=== PATIENT | male | born 1940 | race Caucasian/White ===

== ENCOUNTER 2023-09-17 11:19 | Inpatient (IN) ==
--- NOTE | 2023-09-17 11:55 | ED Triage Note ---
Date of Service September 17, 2023 History of Present Illness This patient was briefly evaluated while in triage. An abbreviated physical exam was performed. This patient is a 82-year-old Male who presents to the ED for evaluation of From SCI Jaciel catheter placed for urinary retention yesterday now with abdominal pain and hematuria Physical Exam GENERAL: NAD CARDIOVASCULAR: RRR RESPIRATORY: CTA ABDOMEN: BS x 4. Nontender to palpation. Prakash in place draining blood-tinged urine. Initial orders for labs and / or imaging were placed and patient was placed in the waiting area until a bed is available. Please see further documentation for the full ED course.
[2023-09-17 14:09] LABS: Basophils # (auto) 0.01 K/uL (0.00-0.20); Basophils % (auto) 0.1 %; Eosinophils # (auto) 0.21 K/uL (0.00-0.50); Hematocrit (blood only) 32.1 % (42.0-52.0); Hemoglobin 10.3 g/dl (14.0-18.0); Immature Granulocytes # (auto) 0.04 K/uL (0.01-0.20); Immature Granulocytes % (auto) 0.6 %; Lymphocytes # (auto) 1.04 K/uL (1.20-3.40); Lymphocytes % (auto) 14.8 %; Mean Corpuscular Hemoglobin 29.7 pg (25.0-34.0); Mean Corpuscular Hgb Conc 32.1 g/dL (32.0-36.0); Mean Corpuscular Volume 92.5 fL (80.0-100.0); Mean Platelet Volume 11.8 fL (9.4-12.4); Monocytes % (auto) 7.1 %; Neutrophils # (auto) 5.22 K/uL (1.40-6.50); Neutrophils % (auto) 74.4 %; Ovalocytes 1+; Platelet Count 164 K/uL (130-400); RDW Coefficient of Variation 14.5 % (11.5-14.5); RDW Standard Deviation 48.3 fL (36.4-46.3); Red Blood Count 3.47 M/uL (4.70-6.10); White Blood Count 7.02 K/ul (4.8-10.8)
[2023-09-17 14:14] LABS: Prothrombin Time 11.4 Seconds (9.0-12.0)
[2023-09-17 14:36] LABS: Calcium 8.6 mg/dl (8.6-10.3); Carbon Dioxide 28 mmol/L (21-32); Chloride 102 mmol/L (98-107); Potassium 3.6 mmol/L (3.5-5.1); Sodium 139 mmol/L (136-145)
[2023-09-17 14:37] LABS: Albumin Level 3.1 gm/dl (3.4-5.0); Anion Gap 9 (3-11); Bilirubin,Total 0.5 mg/dl (0.2-1.0)
[2023-09-17 14:42] LABS: Albumin Globulin Ratio 0.8 (0.9-2); BUN Creatinine Ratio 15.8 (10-20); Blood Urea Nitrogen 16 mg/dl (6-23); Est GFR (Non-African American) 69.9 ml/min; Globulin 3.9 gm/dl (2.5-4.0); Glucose 99 mg/dl (70-99(Fasting)); Lipase 10 U/L (11-82)
[2023-09-17 14:51] LABS: Alanine Aminotransferase 7 U/L (7-52); Alkaline Phosphatase 75 U/L (34-104); Aspartate Aminotransferase 13 U/L (13-39)
[2023-09-17] MEDS ORDERED: OPTIRAY 320 100ml IV ONE (16:32)
--- NOTE | 2023-09-17 16:51 | CT Scan Report ---
CT OF THE ABDOMEN AND PELVIS WITH CONTRAST CLINICAL HISTORY: Abdominal pain. Urinary retention. COMPARISON STUDY: None. TECHNIQUE: Following IV administration of 89 mL of Optiray, axial images of the abdomen and pelvis we re obtained from the lung bases to the proximal femurs. Images were reviewed in the axial, sagittal, and coronal planes. IV contrast was administered without complication. Automated exposure control wa s utilized for the study. A dose lowering technique was utilized adhering to the principles of ALARA . CT DOSE: 1087.95 mGy.cm FINDINGS: No pneumatosis, free air or portal venous gas is present. There is a moderate sized hiatal hernia. Liver morphology is normal. An 8 mm hypodense segment 7 hepatic lesion is too small to charac terize. There is no biliary or pancreatic ductal dilatation. The gallbladder is slightly distended. T here is no pericholecystic infiltration or gallbladder wall thickening. Spleen and adrenal glands are unremarkable. There is moderate bilateral hydroureteronephrosis. A Prakash balloon within the base of the bladder is noted. There is gas within the bladder. Moderate bladder wall thickening is noted with adjacent fluid and stranding. There is a 4.4 cm density within the bladder on axial image 236 of 329 . No abdominal or pelvic lymphadenopathy is present. There are no suspicious osseous lesions. Right h ip arthroplasty is intact. There is no evidence for a bowel obstruction. A moderate amount of stool w ithin the rectum is present. The caliber and wall thickness of small and large bowel are normal. The appendix is normal. Postoperative within the spine are incidentally noted. IMPRESSION: 1. Moderate bilateral hydroureteronephrosis, related to the bladder. Moderate bladder wall thickening with adjacent fluid and stranding. Prakash balloon and gas within the bladder. In addition, 4.4 cm den sity within the bladder. This could reflect clot or a bladder tumor. 2. Moderate amount of stool within the rectum. No evidence for a bowel obstruction. No bowel wall thi ckening. 3. Hiatal hernia. ACT 112: Negative or not required by law. Electronically signed by: Glen Meyers M.D. 09/17/2023 4:50 PM
--- NOTE | 2023-09-17 18:17 | Emergency Department Note ---
Impression & Plan Gross hematuria, Urinary retention, Hydronephrosis ED Provider Note NAME: FELICIANO [id number] JUSTYNA AGE: 82 SEX: M ARRIVES VIA: Walk-In INFORMANT: Patient ED PROVIDER(S): Wicho Landa MD CHIEF COMPLAINT: Blood in cuello catheter. Referred. PLAN: Disposition: Admit MEDICAL DECISION MAKING: The patient is a pleasant 82-year-old gentleman, current skilled nursing inmate at [facility] who presents to the emergency department via walk-in referred from his [facility] for evaluation of ongoing gross hematuria draining into Cuello catheter which was placed yesterday due to urinary retention in the setting of the patient describing lower urinary tract symptoms for years but over the past week or so has been only dribbling and having lower abdominal discomfort. He reports his dribbling urine was yellow and nonbloody but after the catheter was placed has only been feeling with blood. He denies any headache or lightheadedness. Denies any fevers, chills, cough, congestion, nausea, vomiting. His CT imaging today does show constipation as well as it did on a recent emergency department visit on his CT spine imaging after a fall. However he reports he goes approximately every 1-3 days and this has been his normal for years and does not have to strain significantly. The patient denies being on any blood thinners. On my evaluation the patient is in no acute distress, afebrile stable vital signs. His abdomen is benign. WBC and platelets within normal limits. H/H 10.3/32.1 without recent values for comparison. INR is normal. Chemistry without metabolic acidosis. Electrolytes and LFTs unremarkable. Lipase not elevated. CT of the abdomen pelvis was performed and demonstrates mild bilateral hydroureteronephrosis in the setting of the patient's bladder outlet obstruction prior to Cuello catheter placement. Note is made of a 4 cm density within the bladder which may reflect clot versus bladder tumor. Given these findings in the setting of possible challenges with close outpatient follow-up in the setting of his incarceration Case was reviewed with urology on-call, Dr. Garsia. Appreciate consultation recommendations and agrees with plan for admission to hospital service for monitoring and they will likely scope tomorrow. If the patient were to develop obstruction of his catheter then CBI could be initiated with three-way catheter but can hold on this for now. Recommends keeping the patient n.p.o. if the patient were to patient's daughter clot off and require evacuation emergently. Case was discussed with Dr. Shah, [facility] hospitalist, who will evaluate the patient for admission. UA subsequently without convincing evidence of infection. Triage Nursing notes reviewed and agree them. Prior/outside-external medical records reviewed Vital Signs: reviewed Differential diagnosis: Renal colic, UTI, appendicitis, diverticulitis, mesenteric ischemia, aortic pathology, infections, inflammatory bowel disease, PUD, biliary pathology, as well as other pathologies. ER treatment provided: See below. Diagnostics interpreted by me: Cardiac Monitoring: An order for continuous cardiac monitoring was placed and demonstrated normal sinus rhythm, 65 bpm, no ectopy. Laboratory studies: See below Imaging studies: See below Consultation(s): Dr. Garsia, [place] [facility]rology. [facility] HPI: The patient is a pleasant 82-year-old gentleman, current skilled nursing inmate at [facility] who presents to the emergency department via walk-in referred from [facility] for evaluation of ongoing gross hematuria draining into Cuello catheter which was placed yesterday due to urinary retention in the setting of the patient describing lower urinary tract symptoms for years but over the past week or so has been only dribbling and having lower abdominal discomfort. He reports his dribbling urine was yellow and nonbloody but after the catheter was placed has only been feeling with blood. He denies any headache or lightheadedness. Denies any fevers, chills, cough, congestion, nausea, vomiting. His CT imaging today does show constipation as well as it did on a recent emergency department visit on his CT spine imaging after a fall. However he reports he goes approximately every 1-3 days and this has been his normal for years and does not have to strain significantly. ROS: See above HPI for pertinent positives & negatives. A total of 10 systems reviewed and were otherwise negative. VITALS:See Below PHYSICAL EXAMINATION: GENERAL: Awake, alert, well-appearing, in no distress HENT: Normocephalic, atraumatic. Oropharynx unremarkable. EYES: Normal conjunctiva. Sclera non-icteric. NECK: Supple. No nuchal rigidity. FROM. No JVD. RESPIRATORY: Clear to auscultation. CARDIAC: Regular rate, normal rhythm. Extremities warm and well perfused. Pulses equal. ABDOMEN: Soft, non-distended. No tenderness to palpation. No rebound or guarding. No masses. : Cuello catheter in place draining gross powers red blood. MUSCULOSKELETAL: Chest examination reveals no tenderness. The back is symmetrical on inspection without obvious abnormality. There is no CVA tenderness to palpation. No joint edema. LOWER EXTREMITIES: Calves are equal size bilaterally and non-tender. No edema. No discoloration. NEURO: Normal sensorium. No sensory or motor deficits noted. SKIN: No rash or jaundice noted. Wicho Landa MD Past Med/Surg History Medical History Hypertension Social History Smoking Status: Former smoker Tobacco Type: Cigarettes Hx Alcohol Use: No Hx Substance Use: No Preferred Language: Slovenian Communication Ability: Effective Supervisor Cereal Required: No Beliefs That Will Affect Care: None Current Living Situation: Other Current Living Situation Comment: [facility] Feels Safe at Home: Yes Assistive Devices: None Allergies Allergies Allergy/AdvReac Type Severity Reaction Status Date / Time No Known Allergies Allergy Unverified 09/17/23 19:47 Home Meds Home Medications Medication Instructions Recorded Confirmed albuterol sulfate 90 mcg/actuation 2 puff inhalation QID PRN 09/17/23 09/17/23 aerosol inhaler Shortness Of Breath cholecalciferol (vitamin D3) 25 50 mcg PO DAILY 09/17/23 09/17/23 mcg (1,000 unit) capsule (Vitamin D3) furosemide 40 mg tablet (Lasix) 40 mg PO DAILY 09/17/23 09/17/23 lisinopril 20 mg tablet 20 mg PO DAILY 09/17/23 09/17/23 ropinirole 1 mg tablet 1 mg PO HS 09/17/23 09/17/23 tamsulosin 0.4 mg capsule 0.4 mg PO HS 09/17/23 09/17/23 vit B complex and vit C 1 tab PO DAILY 09/17/23 09/17/23 no.24-ferrous fum 66 mg-folic 1,000 mcg tablet (Nephron FA) Results & Data (ED) Vital Signs Vital Signs - 24 hr 09/17/23 11:51 09/17/23 17:58 09/17/23 18:42 Temperature 36.6 C Temperature Source Skin Pulse Rate 65 Pulse Rate [Finger] 65 63 Respiratory Rate 18 18 18 Blood Pressure 152/75 H Blood Pressure [Right Arm] 156/79 H 153/84 H Blood Pressure Mean 100 Blood Pressure Mean [Right Arm] 104 107 Pulse Oximetry 97 96 97 Oxygen Delivery Method Room Air Room Air Sepsis Recent Fever Within 48 Hours No Sepsis New/Unexplained Change in Mental Status No Sepsis Action Taken by Nursing No Action Required Laboratory Data Attestation: I reviewed the patient's lab results. 09/17/23 13:20 09/17/23 13:20 Lab Results 09/17/23 09/17/23 09/17/23 Range/Units 13:20 13:20 13:20 WBC 7.02 (4.8-10.8) K/ul RBC 3.47 L (4.70-6.10) M/uL Hgb 10.3 L (14.0-18.0) g/dl Hct 32.1 L (42.0-52.0) % MCV 92.5 (80.0-100.0) fL MCH 29.7 (25.0-34.0) pg MCHC 32.1 (32.0-36.0) g/dL RDW Std Deviation 48.3 H (36.4-46.3) fL RDW Coeff of Ingrid 14.5 (11.5-14.5) % Plt Count 164 (130-400) K/uL MPV 11.8 (9.4-12.4) fL Immature Gran % (Auto) 0.6 % Neut % (Auto) 74.4 % Lymph % (Auto) 14.8 % Eaton % (Auto) 7.1 % Eos % (Auto) 3.0 % Baso % (Auto) 0.1 % Neut # (Auto) 5.22 (1.40-6.50) K/uL Lymph # (Auto) 1.04 L (1.20-3.40) K/uL Eaton # (Auto) 0.50 (0.11-0.59) K/uL Eos # (Auto) 0.21 (0.00-0.50) K/uL Baso # (Auto) 0.01 (0.00-0.20) K/uL Immature Gran # (Auto) 0.04 (0.01-0.20) K/uL Ovalocytes 1+ PT 11.4 (9.0-12.0) Seconds INR 1.0 (0.9-1.1) Sodium 139 (136-145) mmol/L Potassium 3.6 (3.5-5.1) mmol/L Chloride 102 (98-107) mmol/L Carbon Dioxide 28 (21-32) mmol/L Anion Gap 9 (3-11) BUN 16 (6-23) mg/dl Creatinine 1.01 (0.6-1.4) mg/dl Est Cr Clr Drug Dosing Not Reportable Est GFR ( Amer) 81.0 ml/min Est GFR (Non-Af Amer) 69.9 ml/min BUN/Creatinine Ratio 15.8 (10-20) Glucose 99 (70-99(Fasting)) mg/dl Calcium 8.6 (8.6-10.3) mg/dl Total Bilirubin 0.5 (0.2-1.0) mg/dl AST 13 (13-39) U/L ALT 7 (7-52) U/L Alkaline Phosphatase 75 (34-104) U/L Total Protein 7.0 (6.0-8.3) gm/dl Albumin 3.1 L (3.4-5.0) gm/dl Globulin 3.9 (2.5-4.0) gm/dl Albumin/Globulin Ratio 0.8 L (0.9-2) Lipase 10 L (11-82) U/L Urine Color Urine Appearance (Clear) Urine pH (4.5-7.5) Ur Specific Foster (1.000-1.030) Urine Protein (Negative) Urine Glucose (UA) (Negative) Urine Ketones (Negative) Urine Blood (Negative) Urine Nitrite (Negative) Urine Bilirubin (Negative) Urine Urobilinogen (Negative) Ur Leukocyte Esterase (Negative) Urine RBC (0-4) /hpf Urine WBC (0-5) /hpf Ur Epithelial Cells (0-5) /lpf Urine Bacteria (Negative) SARS-CoV-2, RNA, NAAT (NEGATIVE) 09/17/23 09/17/23 Range/Units 18:40 19:26 WBC (4.8-10.8) K/ul RBC (4.70-6.10) M/uL Hgb (14.0-18.0) g/dl Hct (42.0-52.0) % MCV (80.0-100.0) fL MCH (25.0-34.0) pg MCHC (32.0-36.0) g/dL RDW Std Deviation (36.4-46.3) fL RDW Coeff of Ingrid (11.5-14.5) % Plt Count (130-400) K/uL MPV (9.4-12.4) fL Immature Gran % (Auto) % Neut % (Auto) % Lymph % (Auto) % Eaton % (Auto) % Eos % (Auto) % Baso % (Auto) % Neut # (Auto) (1.40-6.50) K/uL Lymph # (Auto) (1.20-3.40) K/uL Eaton # (Auto) (0.11-0.59) K/uL Eos # (Auto) (0.00-0.50) K/uL Baso # (Auto) (0.00-0.20) K/uL Immature Gran # (Auto) (0.01-0.20) K/uL Ovalocytes PT (9.0-12.0) Seconds INR (0.9-1.1) Sodium (136-145) mmol/L Potassium (3.5-5.1) mmol/L Chloride (98-107) mmol/L Carbon Dioxide (21-32) mmol/L Anion Gap (3-11) BUN (6-23) mg/dl Creatinine (0.6-1.4) mg/dl Est Cr Clr Drug Dosing Est GFR ( Amer) ml/min Est GFR (Non-Af Amer) ml/min BUN/Creatinine Ratio (10-20) Glucose (70-99(Fasting)) mg/dl Calcium (8.6-10.3) mg/dl Total Bilirubin (0.2-1.0) mg/dl AST (13-39) U/L ALT (7-52) U/L Alkaline Phosphatase (34-104) U/L Total Protein (6.0-8.3) gm/dl Albumin (3.4-5.0) gm/dl Globulin (2.5-4.0) gm/dl Albumin/Globulin Ratio (0.9-2) Lipase (11-82) U/L Urine Color Red Urine Appearance Cloudy A (Clear) Urine pH 7.5 (4.5-7.5) Ur Specific Foster 1.020 (1.000-1.030) Urine Protein 3+ H (Negative) Urine Glucose (UA) Trace H (Negative) Urine Ketones Trace H (Negative) Urine Blood 3+ H (Negative) Urine Nitrite Negative (Negative) Urine Bilirubin Negative (Negative) Urine Urobilinogen Negative (Negative) Ur Leukocyte Esterase Negative (Negative) Urine RBC >30 H (0-4) /hpf Urine WBC 0-5 (0-5) /hpf Ur Epithelial Cells 0-5 (0-5) /lpf Urine Bacteria Negative (Negative) SARS-CoV-2, RNA, NAAT NEGATIVE (NEGATIVE) Administered Medications Acetaminophen (Acetaminophen 325 Mg Tab) 650 mg PO Q4H PRN PRN Reason: Pain or Fever Stop: 10/17/23 23:11 Last Admin: 09/18/23 18:07 Dose: 650 mg Documented By: Admin: 09/17/23 23:53 Dose: 650 mg Documented By: LITZY Furosemide (Furosemide 40 Mg Tab) 40 mg PO DAILY KAYLIN Stop: 10/18/23 08:59 Last Admin: 09/18/23 10:48 Dose: 40 mg Documented By: ARABELLA Sodium Chloride (Nss) 1,000 mls @ 100 mls/hr IV .Q10H KAYLIN Stop: 10/17/23 23:11 Last Admin: 09/18/23 21:48 Dose: 100 mls/hr Documented By: Infusion: 09/18/23 20:55 Dose: 0 mls/hr Documented By: Admin: 09/18/23 10:53 Dose: 100 mls/hr Documented By: Infusion: 09/18/23 10:52 Dose: 0 mls/hr Documented By: Infusion: 09/18/23 10:49 Dose: 0 mls/hr Documented By: Infusion: 09/18/23 01:45 Dose: 0 mls/hr Documented By: Admin: 09/17/23 23:58 Dose: 100 mls/hr Documented By: LITZY Ceftriaxone Sodium 1,000 mg/ (Dextrose) 50 mls @ 100 mls/hr IV Q24H KAYLIN; Protocol Stop: 09/28/23 20:59 Last Infusion: 09/18/23 22:55 Dose: 0 mls/hr Documented By: Admin: 09/18/23 21:48 Dose: 100 mls/hr Documented By: JENNY Lisinopril (Lisinopril 20 Mg Tab) 20 mg PO DAILY KAYLIN Stop: 10/18/23 08:59 Last Admin: 09/18/23 10:48 Dose: 20 mg Documented By: ARABELLA Magnesium Oxide (Magnesium Oxide 400 Mg Tab) 400 mg PO BID KAYLIN Stop: 10/18/23 20:59 Last Admin: 09/18/23 21:49 Dose: 400 mg Documented By: JENNY Melatonin (Melatonin 3 Mg Tab) 3 mg PO HS PRN PRN Reason: Sleep Stop: 10/18/23 19:56 Last Admin: 09/18/23 21:50 Dose: 3 mg Documented By: JENNY Ropinirole HCl (Ropinirole Hcl 1 Mg Tablet) 1 mg PO HS KAYLIN Stop: 10/17/23 23:11 Last Admin: 09/18/23 21:49 Dose: 1 mg Documented By: Admin: 09/18/23 00:24 Dose: 1 mg Documented By: LITZY Tamsulosin HCl (Tamsulosin Hcl 0.4 Mg Cap) 0.4 mg PO HS KAYLIN Stop: 10/17/23 23:11 Last Admin: 09/18/23 21:50 Dose: 0.4 mg Documented By: Admin: 09/18/23 00:24 Dose: 0.4 mg Documented By: LITZY Vitamin B Complex/Folic Acid (Nephrocaps) 1 cap PO DAILY KAYLIN Stop: 10/18/23 08:59 Last Admin: 09/18/23 10:49 Dose: 1 cap Documented By: ARABELLA Vitamin D (Cholecalciferol 1,000 Units 25 Mcg Tab) 2,000 units PO DAILY KAYLIN Stop: 10/18/23 08:59 Last Admin: 09/18/23 10:48 Dose: 2,000 units Documented By: ARABELLA Discontinued Medications Ioversol (Optiray 320 100ml) 89 ml IV ONCE ONE Stop: 09/17/23 16:33 Last Admin: 09/17/23 16:33 Dose: 89 ml Documented By: EMERSON Potassium Chloride (Potassium Chloride Crtab 20 Meq Tabcr) 40 meq PO NOW STA Stop: 09/18/23 18:10 Last Admin: 09/18/23 21:49 Dose: 40 meq Documented By: JENNY Zolpidem Tartrate (Zolpidem Tartrate 5 Mg Tab) 5 mg PO NOW STA Stop: 09/17/23 23:43 Last Admin: 09/18/23 00:24 Dose: 5 mg Documented By: LITZY Imaging Data Radiologist's Impression: Abdomen/Pelvis CT 09/17/23 11:56 CT OF THE ABDOMEN AND PELVIS WITH CONTRAST CLINICAL HISTORY: Abdominal pain. Urinary retention. COMPARISON STUDY: None. TECHNIQUE: Following IV administration of 89 mL of Optiray, axial images of the abdomen and pelvis were obtained from the lung bases to the proximal femurs. Images were reviewed in the axial, sagittal, and coronal planes. IV contrast was administered without complication. Automated exposure control was utilized for the study. A dose lowering technique was utilized adhering to the principles of ALARA. CT DOSE: 1087.95 mGy.cm FINDINGS: No pneumatosis, free air or portal venous gas is present. There is a moderate sized hiatal hernia. Liver morphology is normal. An 8 mm hypodense segment 7 hepatic lesion is too small to characterize. There is no biliary or pancreatic ductal dilatation. The gallbladder is slightly distended. There is no pericholecystic infiltration or gallbladder wall thickening. Spleen and adrenal glands are unremarkable. There is moderate bilateral hydroureteronephrosis. A Cuello balloon within the base of the bladder is noted. There is gas within the b ladder. Moderate bladder wall thickening is noted with adjacent fluid and stranding. There is a 4.4 cm density within the bladder on axial image 236 of 329. No abdominal or pelvic lymphadenopathy is present. There are no suspicious osseous lesions. Right hip arthroplasty is intact. There is no evidence for a bowel obstruction. A moderate amount of stool within the rectum is present. The caliber and wall thickness of small and large bowel are normal. The appendix is normal. Postoperative within the spine are incidentally noted. IMPRESSION: 1. Moderate bilateral hydroureteronephrosis, related to the bladder. Moderate bladder wall thickening with adjacent fluid and stranding. Cuello balloon and gas within the bladder. In addition, 4.4 cm density within the bladder. This could reflect clot or a bladder tumor. 2. Moderate amount of stool within the rectum. No evidence for a bowel obstruction. No bowel wall thickening. 3. Hiatal hernia. ACT 112: Negative or not required by law. Electronically signed by: Glen Meyers M.D. 09/17/2023 4:50 PM Discharge Plan Visit Data Chief Complaint: Urinary Symptoms Stated Complaint: UNABLE TO URINATE,HEMATURIA ED Provider: Wicho Landa Discharge Problem: Gross hematuria, Urinary retention, Hydronephrosis Patient Disposition: Admitted As Inpatient Discharge Instructions Interventions: ED Discharge Assessment Last Done: 09/17/23 22:20
[2023-09-17 19:33] LABS: Appearance Urine Cloudy (Clear); Bilirubin Urine Negative (Negative); Blood Urine 3+ (Negative); Color Urine Red; Glucose Urine UA Trace (Negative); Ketones Urine Trace (Negative); Leukocyte Esterase Urine Negative (Negative); Nitrite Urine Negative (Negative); Protein Urine 3+ (Negative); Urobilinogen Urine Negative (Negative); pH Urine 7.5 (4.5-7.5)
[2023-09-17 19:36] LABS: Epithelial Cell Urine 0-5 /lpf (0-5)
[2023-09-17 19:37] LABS: Bacteria Urine Negative (Negative); RBC Urine >30 /hpf (0-4); WBC Urine 0-5 /hpf (0-5)
--- NOTE | 2023-09-17 20:22 | History & Physical Report ---
Date of Service September 17, 2023 Assessment & Plan (1) Gross hematuria: Plan: 82-year-old male past med hx significant for restless leg syndrome, constipation, GERD, iron deficiency anemia, hypertension, COPD, neuropathy, urinary retention, history of dyspnea, vitamin D deficiency, coming from long-term because of gross hematuria. Gross hematuria History of urinary retention S/p Prakash yesterday which resulted in gross hematuria Moderate bilateral hydronephrosis on CAT scan Questionable clot versus bladder tumor Urology notified by ER We will monitor H&H, n.p.o. IV fluids, continue Flomax Urology consult Close monitor Acute on chronic iron deficiency anemia Questionable acute blood loss anemia Hemoglobin 10.3. Do not know baseline Blood consent obtained We will follow H&H Constipation. Stool softeners . Hypertension Continue lisinopril and Lasix Right lower extremity edema We will follow Doppler Restless leg syndrome On ropinirole History of COPD continue home inhalers Currently stable DVT prophylaxis We will place on SCDs if Dopplers negative for DVT Disposition med/telemetry Full code History of Present Illness Chief Complaint: Gross hematuria Primary Care Provider: LOIS Grissom 82-year-old male past med history significant for restless leg syndrome, constipation, GERD, iron deficiency anemia, hypertension, COPD, neuropathy, urinary retention, history of dyspnea, vitamin D deficiency, coming from long-term because of gross hematuria. Patient states he has urinary retention for long time. Yesterday Prakash was placed after that developed hematuria which did not resolve so he was brought to the ER. Has chronic back pain and hip pain. Denies any nausea or vomiting. No headache. No cough. No chest pain or shortness of breath. Appetite is okay. Ambulates with walker. Currently resting comfortably and hemodynamically stable. Past medical history as mentioned above Past surgical history. States had 4 back surgeries. Had a neck surgery. States had right hip replacement. Social history. Currently present. States last time he smoked was 40 years ago. States last time he drank alcohol was 40 years ago. Family history. States mother from cancer. Father from black lung Allergies Allergy/AdvReac Type Severity Reaction Status Date / Time No Known Allergies Allergy Unverified 09/17/23 19:47 Home Medications Medication Instructions Recorded Confirmed Type albuterol sulfate 90 mcg/actuation 2 puff inhalation QID PRN 09/17/23 09/17/23 History aerosol inhaler Shortness Of Breath cholecalciferol (vitamin D3) 25 50 mcg PO DAILY 09/17/23 09/17/23 History mcg (1,000 unit) capsule (Vitamin D3) furosemide 40 mg tablet (Lasix) 40 mg PO DAILY 09/17/23 09/17/23 History lisinopril 20 mg tablet 20 mg PO DAILY 09/17/23 09/17/23 History ropinirole 1 mg tablet 1 mg PO HS 09/17/23 09/17/23 History tamsulosin 0.4 mg capsule 0.4 mg PO HS 09/17/23 09/17/23 History vit B complex and vit C 1 tab PO DAILY 09/17/23 09/17/23 History no.24-ferrous fum 66 mg-folic 1,000 mcg tablet (Nephron FA) Past Med/Surg History Medical History Hypertension Social History Smoking Status: Former smoker Tobacco Type: Cigarettes Hx Alcohol Use: No Hx Substance Use: No Preferred Language: Panamanian Communication Ability: Effective Oncology Social Worker Required: No Beliefs That Will Affect Care: None Current Living Situation: Other Current Living Situation Comment: LOIS Grissom Feels Safe at Home: Yes Assistive Devices: Walker Review of Systems Review of Systems: All systems reviewed & are unremarkable except as noted in HPI & below Physical Exam Physical Exam: General- Not in distress Head- atraumatic Eyes- PERRL. ENT- oropharynx clear Neck- supple, no JVD. Lungs- clear to auscultation. wheezing or crackles. Heart- regular rhythm; no murmur, no gallop. Abdomen- normal bowel sounds, soft, nontender, no distension. Extremities- right lower extremity edema present. no erythema seen. Neuro- alert, oriented x 3; PERRL, no facial palsy; no dysarthria; Skin- warm & dry Results & Data Results & Data Vital Signs (Past 12 Hours) Vital Signs Temp Pulse Pulse Resp BP BP Pulse Ox 09/17/23 19:00 63 18 160/78 H 95 09/17/23 18:42 63 18 153/84 H 97 09/17/23 17:58 65 18 156/79 H 96 09/17/23 11:51 36.6 C 65 18 152/75 H 97 O2 Del Method 09/17/23 19:00 Room Air 09/17/23 18:42 Room Air 09/17/23 17:58 Room Air 09/17/23 11:51 Diagnostic Findings Laboratory Results WBC 7.02 K/ul (4.8-10.8) 09/17/23 13:20 RBC 3.47 M/uL (4.70-6.10) L 09/17/23 13:20 Hgb 10.3 g/dl (14.0-18.0) L 09/17/23 13:20 Hct 32.1 % (42.0-52.0) L 09/17/23 13:20 MCV 92.5 fL (80.0-100.0) 09/17/23 13:20 MCH 29.7 pg (25.0-34.0) 09/17/23 13:20 MCHC 32.1 g/dL (32.0-36.0) 09/17/23 13:20 RDW Std Deviation 48.3 fL (36.4-46.3) H 09/17/23 13:20 RDW Coeff of Ingrid 14.5 % (11.5-14.5) 09/17/23 13:20 Plt Count 164 K/uL (130-400) 09/17/23 13:20 MPV 11.8 fL (9.4-12.4) 09/17/23 13:20 Immature Gran % (Auto) 0.6 % 09/17/23 13:20 Neut % (Auto) 74.4 % 09/17/23 13:20 Lymph % (Auto) 14.8 % 09/17/23 13:20 Treasure % (Auto) 7.1 % 09/17/23 13:20 Eos % (Auto) 3.0 % 09/17/23 13:20 Baso % (Auto) 0.1 % 09/17/23 13:20 Neut # (Auto) 5.22 K/uL (1.40-6.50) 09/17/23 13:20 Lymph # (Auto) 1.04 K/uL (1.20-3.40) L 09/17/23 13:20 Treasure # (Auto) 0.50 K/uL (0.11-0.59) 09/17/23 13:20 Eos # (Auto) 0.21 K/uL (0.00-0.50) 09/17/23 13:20 Baso # (Auto) 0.01 K/uL (0.00-0.20) 09/17/23 13:20 Immature Gran # (Auto) 0.04 K/uL (0.01-0.20) 09/17/23 13:20 Ovalocytes 1+ 09/17/23 13:20 PT 11.4 Seconds (9.0-12.0) 09/17/23 13:20 INR 1.0 (0.9-1.1) 09/17/23 13:20 Sodium 139 mmol/L (136-145) 09/17/23 13:20 Potassium 3.6 mmol/L (3.5-5.1) 09/17/23 13:20 Chloride 102 mmol/L (98-107) 09/17/23 13:20 Carbon Dioxide 28 mmol/L (21-32) 09/17/23 13:20 Anion Gap 9 (3-11) 09/17/23 13:20 BUN 16 mg/dl (6-23) 09/17/23 13:20 Creatinine 1.01 mg/dl (0.6-1.4) 09/17/23 13:20 Est Cr Clr Drug Dosing Not Reportable 09/17/23 13:20 Est GFR ( Amer) 81.0 ml/min 09/17/23 13:20 Est GFR (Non-Af Amer) 69.9 ml/min 09/17/23 13:20 BUN/Creatinine Ratio 15.8 (10-20) 09/17/23 13:20 Glucose 99 mg/dl (70-99(Fasting)) 09/17/23 13:20 Calcium 8.6 mg/dl (8.6-10.3) 09/17/23 13:20 Total Bilirubin 0.5 mg/dl (0.2-1.0) 09/17/23 13:20 AST 13 U/L (13-39) 09/17/23 13:20 ALT 7 U/L (7-52) 09/17/23 13:20 Alkaline Phosphatase 75 U/L (34-104) 09/17/23 13:20 Total Protein 7.0 gm/dl (6.0-8.3) 09/17/23 13:20 Albumin 3.1 gm/dl (3.4-5.0) L 09/17/23 13:20 Globulin 3.9 gm/dl (2.5-4.0) 09/17/23 13:20 Albumin/Globulin Ratio 0.8 (0.9-2) L 09/17/23 13:20 Lipase 10 U/L (11-82) L 09/17/23 13:20 Urine Color Red 09/17/23 18:40 Urine Appearance Cloudy (Clear) A 09/17/23 18:40 Urine pH 7.5 (4.5-7.5) 09/17/23 18:40 Ur Specific Donora 1.020 (1.000-1.030) 09/17/23 18:40 Urine Protein 3+ (Negative) H 09/17/23 18:40 Urine Glucose (UA) Trace (Negative) H 09/17/23 18:40 Urine Ketones Trace (Negative) H 09/17/23 18:40 Urine Blood 3+ (Negative) H 09/17/23 18:40 Urine Nitrite Negative (Negative) 09/17/23 18:40 Urine Bilirubin Negative (Negative) 09/17/23 18:40 Urine Urobilinogen Negative (Negative) 09/17/23 18:40 Ur Leukocyte Esterase Negative (Negative) 09/17/23 18:40 Urine RBC >30 /hpf (0-4) H 09/17/23 18:40 Urine WBC 0-5 /hpf (0-5) 09/17/23 18:40 Ur Epithelial Cells 0-5 /lpf (0-5) 09/17/23 18:40 Urine Bacteria Negative (Negative) 09/17/23 18:40 SARS-CoV-2, RNA, NAAT NEGATIVE (NEGATIVE) 09/17/23 19:26 Impressions Abdomen/Pelvis CT 09/17/23 11:56 CT OF THE ABDOMEN AND PELVIS WITH CONTRAST CLINICAL HISTORY: Abdominal pain. Urinary retention. COMPARISON STUDY: None. TECHNIQUE: Following IV administration of 89 mL of Optiray, axial images of the abdomen and pelvis were obtained from the lung bases to the proximal femurs. Images were reviewed in the axial, sagittal, and coronal planes. IV contrast was administered without complication. Automated exposure control was utilized for the study. A dose lowering technique was utilized adhering to the principles of ALARA. CT DOSE: 1087.95 mGy.cm FINDINGS: No pneumatosis, free air or portal venous gas is present. There is a moderate sized hiatal hernia. Liver morphology is normal. An 8 mm hypodense segment 7 hepatic lesion is too small to characterize. There is no biliary or pancreatic ductal dilatation. The gallbladder is slightly distended. There is no pericholecystic infiltration or gallbladder wall thickening. Spleen and adrenal glands are unremarkable. There is moderate bilateral hydroureteronephrosis. A Prakash balloon within the base of the bladder is noted. There is gas within the bladder. Moderate bladder wall thickening is noted with adjacent fluid and stranding. There is a 4.4 cm density within the bladder on axial image 236 of 329. No abdominal or pelvic lymphadenopathy is present. There are no suspicious osseous lesions. Right hip arthroplasty is intact. There is no evidence for a bowel obstruction. A moderate amount of stool within the rectum is present. The caliber and wall thickness of small and large bowel are normal. The appendix is normal. Postoperative within the spine are incidentally noted. IMPRESSION: 1. Moderate bilateral hydroureteronephrosis, related to the bladder. Moderate bladder wall thickening with adjacent fluid and stranding. Prakash balloon and gas within the bladder. In addition, 4.4 cm density within the bladder. This could reflect clot or a bladder tumor. 2. Moderate amount of stool within the rectum. No evidence for a bowel ob struction. No bowel wall thickening. 3. Hiatal hernia. ACT 112: Negative or not required by law. Electronically signed by: Glen Meyers M.D. 09/17/2023 4:50 PM Code Status & VTE Plan VTE Prophylaxis Plan VTE Prophylaxis will be ordered: Yes
--- NOTE | 2023-09-17 20:50 | Urology Consultation ---
I have discussed Mr. Berry's case with Ziggy Joshua PA-C and agree with the above documentation. Hematuria may be related to traumatic catheter or rapid decompression of bladder. He will require eventual hematuria work-up, however this can be performed as an outpatient. As long as the catheter continues to drain, we can continue to monitor and expect hematuria will clear. Okay to hand irrigate if needed or if hematuria worsens he could not be started on continuous bladder irrigation. Urology will follow along. -Gerry Garsia MD. Date of Consultation September 17, 2023 Assessment & Plan (1) Gross hematuria: The patient has been admitted on the hospitalist service. We recommend proceeding as follows from a urologic perspective: Maintain Prakash catheter to gravity drainage. If Prakash catheter becomes clogged manual irrigation can be employed to ensure patency. If these attempts were unsuccessful consideration be given to placing patient on continuous bladder irrigation The patient has been made n.p.o. for the present time as he may require cystoscopy on 09/18/2023 or earlier if patient's Prakash catheter clogs and cannot be unclogged with measures noted above The cause of patient's hematuria and urine tension may be reflective of enlarged prostate. The hematuria may be due to over bladder distention and rapid decompression. Insertion of a Prakash catheter may have also irritated some tissue causing the hematuria. In addition it is unclear if the patient either has a bladder clot or a bladder mass on the CT scan and this can be further delineated by cystoscopy Secondary to hematuria would recommend holding any NSAIDs, antiplatelets, or anticoagulants Additional recommendations be forthcoming based on his clinical course as it unfolds (2) Urinary retention: History of Present Illness Reason for Consultation: Urinary retention with hematuria History of Present Illness This is an 82-year-old male who presented to the emergency department [facility] from a correctional facility secondary to urinary retention. Patient notes that for what he describes as several years he has had a decreased urinary stream oftentimes dribbling urine when he goes to urinate. He feels that when he does urinate he has incomplete bladder emptying. He does report some intermittent dysuria. The patient notes that over the past 24 to 48 hours he has had some back and flank pain and worsening sensation that he has to urinate with the inability to urinate and therefore Prakash catheter was placed while he was at the correctional facility. According to reports from skilled nursing guards were present is that the patient had an excess of 4 Prakash catheter bags filled with grossly bloody urine at the time of Prakash catheter placement. The patient notes that the Prakash catheter was able to be placed without difficulty. The patient notes that he was a heavy smoker in the past but has not smoked in about 40 years. He denies any known history of cancer. He denies any weight loss. The patient notes that prior to having his Prakash catheter placed he has never had hematuria in the past Since arrival to [facility] emergency department the patient has had labs and imaging which independent reviewed. The patient had a CT scan of the abdomen pelvis that showed moderate bilateral hydroureteronephrosis. The patient was noted to have moderate bladder wall thickening with adjacent fluid and stranding. A Prakash balloon was noted to be within the bladder with gas within the bladder. There was a 4.4 cm density within the bladder felt to be reflective of either clot or bladder tumor. Labs included a CBC were white blood cell count and platelet count were normal. His hemoglobin and hematocrit were 10.3 and 32.1. Coagulation studies were noted to be normal. Chemistry profile showed sodium and potassium along with BUN and creatinine were normal. There is no elevation of patient's LFTs or lipase. Urinalysis showed cloudy urine with 3+ blood. The specimen was negative for nitrites and leukocyte Estrace. There were no white blood cells on this study and no bacteria. A COVID test was noted to be negative. At the time of my interview the patient was resting comfortably in bed and is in no distress. Concerning past medical history and surgical history the patient denies any chronic medical problems and denies any prior surgeries Concerning social history he was a heavy smoker in the past. Concerning family history he denies any family history of cancer Allergies Allergy/AdvReac Type Severity Reaction Status Date / Time No Known Allergies Allergy Unverified 09/17/23 19:47 Home Medications Medication Instructions Recorded Confirmed Type albuterol sulfate 90 mcg/actuation 2 puff inhalation QID PRN 09/17/23 09/17/23 History aerosol inhaler Shortness Of Breath cholecalciferol (vitamin D3) 25 50 mcg PO DAILY 09/17/23 09/17/23 History mcg (1,000 unit) capsule (Vitamin D3) furosemide 40 mg tablet (Lasix) 40 mg PO DAILY 09/17/23 09/17/23 History lisinopril 20 mg tablet 20 mg PO DAILY 09/17/23 09/17/23 History ropinirole 1 mg tablet 1 mg PO HS 09/17/23 09/17/23 History tamsulosin 0.4 mg capsule 0.4 mg PO HS 09/17/23 09/17/23 History vit B complex and vit C 1 tab PO DAILY 09/17/23 09/17/23 History no.24-ferrous fum 66 mg-folic 1,000 mcg tablet (Nephron FA) Patient History Medical History Hypertension Social History Smoking Status: Never smoker Tobacco Type: Cigarettes Preferred Language: Honduran Current Living Situation: Other Current Living Situation Comment: LOIS Grissom Feels Safe at Home: Yes Review of Systems Constitutional: no fever and no chills Ear, Nose, Mouth, Throat: no hearing loss Respiratory: no cough and no dyspnea Cardiovascular: no chest pain Gastrointestinal: no abdominal pain, no nausea and no vomiting Genitourinary: + as per Subjective / HPI Musculoskeletal: + back pain (Flank pain bilaterally--improved after Prakash plate) Integumentary: no rash Neurologic: no localized weakness Physical Exam Constitutional: WD/WN, vitals as above Eyes: no conjunctival abnormality ENMT: Ears: no hearing impairment and no external ear abnormality Mouth: no oropharynx abnormality Neck: trachea midline Respiratory: normal respiratory effort; no respiratory distress and no labored breathing Cardiovascular: Rate/Rhythm: regular rate and regular rhythm Gastrointestinal (Abdomen): Abdomen is soft and nonrigid. It is nondistended. There is no pain with palpation. There is no rebound tenderness or guarding Musculoskeletal: No calf tenderness Skin: no rashes Neurologic: moves all extremities Psychiatric: A+Ox3, euthymic affect Genitourinary: No CVA tenderness with percussion bilaterally. Patient had a Prakash catheter draining grossly bloody urine. I do not appreciate any clots in the Prakash collection bag or tubing. The catheter did appear patent and draining appropriately Results & Data Vital Signs (Past 12 Hours) Vital Signs Temp Pulse Pulse Resp BP BP Pulse Ox 09/17/23 19:00 63 18 160/78 H 95 09/17/23 18:42 63 18 153/84 H 97 09/17/23 17:58 65 18 156/79 H 96 09/17/23 11:51 36.6 C 65 18 152/75 H 97 O2 Del Method 09/17/23 19:00 Room Air 09/17/23 18:42 Room Air 09/17/23 17:58 Room Air 09/17/23 11:51 PG Care Time/CCT Total # of Minutes Spent Total Time Spent with Patient: Total time spent is greater than 50% in coordination of care (as documented) at patient's floor/unit and/or counseling patient: Coding Level of Care Code 25442 INT INP/OBS CARE 3/75MIN Diagnoses Gross hematuria R31.0 Urinary retention R33.9
[2023-09-17] MEDS ORDERED: NITROGLYCERIN SL 0.4 MG/TAB TAB SL PRN (23:12)
[2023-09-17] MEDS ORDERED: MoRPHine SULFATE 4 MG/ML 1 ML CARP\\VIAL IV PRN (23:12)
[2023-09-17] MEDS ORDERED: POLYETHYLENE (MIRALAX) 17 GM PACK PO PRN (23:12)
[2023-09-17] MEDS ORDERED: ALBUTEROL HFA 8 GM INHALER INH PRN (23:12)
[2023-09-17] MEDS ORDERED: ZOLPIDEM TARTRATE 5 MG TAB PO STA (23:42)
[2023-09-17] MEDS: ACETAMINOPHEN 325 MG TAB PO PRN (23:53)
[2023-09-17] MEDS: SODIUM CHLORIDE 0.9% 1,000 ML IV SCH (23:58)
[2023-09-18] MEDS: TAMSULOSIN HCL 0.4 MG CAP PO SCH ×2 (00:24→21:50)
[2023-09-18] MEDS: rOPINIRole HCL 1 MG TABLET PO SCH ×2 (00:24→21:49)
--- NOTE | 2023-09-18 02:52 | Ultrasound Report ---
Exam(s): US VENOUS RIGHT LOWER EXTREMITY EXAM: US Duplex Right Lower Extremity Veins CLINICAL HISTORY: Reason for exam: right lower extremity edema. dvt?. TECHNIQUE: Real-time duplex ultrasound scan of the right lower extremity veins integrating B-mode two-dimensional vascular structure, Doppler spectral analysis, color flow Doppler imaging and compression. COMPARISON: None. FINDINGS: Deep veins: Unremarkable. No DVT in the visualized common femoral, femoral, proximal deep femoral or popliteal veins. The veins demonstrate normal color flow, are normally compressible, with normal phasic flow and/or augmentation response. Superficial veins: Unremarkable. No thrombus in the visualized great saphenous vein. Soft tissues: No acute findings. No popliteal cyst. Other findings: Nonspecific edema to the right calf. IMPRESSION: No ultrasonographic evidence of deep venous thrombosis involving the right lower extremity. Electronically signed by: Enedina Moore MD 09/18/23 02:51 AM
[2023-09-18 05:57] LABS: Basophils # (auto) 0.01 K/uL (0.00-0.20); Basophils % (auto) 0.2 %; Eosinophils # (auto) 0.16 K/uL (0.00-0.50); Hemoglobin 8.8 g/dl (14.0-18.0); Immature Granulocytes # (auto) 0.03 K/uL (0.01-0.20); Immature Granulocytes % (auto) 0.6 %; Lymphocytes # (auto) 0.91 K/uL (1.20-3.40); Lymphocytes % (auto) 16.9 %; Mean Corpuscular Hemoglobin 29.8 pg (25.0-34.0); Mean Corpuscular Hgb Conc 32.6 g/dL (32.0-36.0); Mean Corpuscular Volume 91.5 fL (80.0-100.0); Mean Platelet Volume 11.7 fL (9.4-12.4); Monocytes # (auto) 0.35 K/uL (0.11-0.59); Monocytes % (auto) 6.5 %; Neutrophils # (auto) 3.91 K/uL (1.40-6.50); Neutrophils % (auto) 72.8 %; Platelet Count 150 K/uL (130-400); RDW Coefficient of Variation 14.1 % (11.5-14.5); Red Blood Count 2.95 M/uL (4.70-6.10); White Blood Count 5.37 K/ul (4.8-10.8)
[2023-09-18 06:11] LABS: BUN Creatinine Ratio 19.1 (10-20); Calcium 7.6 mg/dl (8.6-10.3); Creatinine Clr Calc Pharmacy 64.7 ml/min; Est GFR (African American) 88.4 ml/min; Est GFR (Non-African American) 76.3 ml/min; Magnesium 1.6 mg/dl (1.7-2.4); Potassium 3.4 mmol/L (3.5-5.1)
--- NOTE | 2023-09-18 08:56 | Urology Progress Note ---
Date of Service September 18, 2023 Assessment & Plan (1) Urinary retention: (2) Gross hematuria: (3) Hydronephrosis: Plan: 82-year-old male admitted for urinary retention and gross hematuria. Patient afebrile and hemodynamically stable Labs reviewedcreatinine 0.94, no leukocytosis, hemoglobin 8.8 Continue to trend H&Htransfuse as needed per medicine service Prakash is patent and draining bloody urine, no clots noted No manual irrigation was required overnight No acute surgical intervention warranted at this time For now, continue with conservative management with Prakash catheter Okay to gently hand irrigate Prakash catheter as needed for catheter obstruction, suprapubic pain, clot retention He will need hematuria work-up with cystoscopy, but possibly can be done as an outpatient pending hospital course Will make him NPO at midnight to reassess in AM Continue supportive care and medical management per medicine service will continue to follow Admission and Anticipated Discharge Date Admission Date: September 17, 2023 Subjective Patient seen and examined at bedside this morning, chart reviewed No acute issues overnight Reports he is hungry and thirsty, but offers no other complaints Denies suprapubic or flank discomfort Prakash patent and draining appropriately with bloody urine, no clots visualized Per nursing, no manual irrigation required overnight or this morning No nausea or vomiting No fever or chills Review of Systems Constitutional: as per Subjective / HPI Gastrointestinal: as per Subjective / HPI Genitourinary: + as per Subjective / HPI Physical Exam Physical Exam: General: thin, no acute distress HEENT: Normocephalic Pulmonary: Nonlabored respirations Abdomen: Nondistended, soft, nontender Extremities: Moves all 4 spontaneously Neuro: No gross deficits Psych: alert and oriented, normal mood Skin: Warm, dry, no rashes noted : no suprapubic tenderness, Prakash patent and draining bloody urine, no clots Results & Data Vital Signs (Past 12 Hours) Vital Signs Temp Pulse Pulse Pulse Resp BP Pulse Ox 09/18/23 07:28 56 L 09/18/23 07:17 36.7 C 61 18 129/62 96 09/17/23 23:13 09/17/23 23:06 71 09/17/23 23:12 36.9 C 64 20 148/79 H 95 09/17/23 22:20 65 16 96 09/17/23 21:05 67 09/17/23 21:30 70 18 140/88 94 O2 Del Method 09/18/23 07:28 09/18/23 07:17 Room Air 09/17/23 23:13 Room Air 09/17/23 23:06 09/17/23 23:12 Room Air 09/17/23 22:20 09/17/23 21:05 09/17/23 21:30 Room Air PG Care Time/CCT Total # of Minutes Spent Total Time Spent with Patient: Total time spent is greater than 50% in coordination of care (as documented) at patient's floor/unit and/or counseling patient: Coding Level of Care Code 52261 SUB INP/OBS CARE 1/25MIN Diagnoses Urinary retention R33.9 Gross hematuria R31.0 Hydronephrosis N13.30
[2023-09-18] MEDS: FUROSEMIDE 40 MG TAB PO SCH (10:48)
[2023-09-18] MEDS: CHOLECALCIFEROL 1,000 UNITS 25 MCG TAB PO SCH (10:48)
[2023-09-18] MEDS: lisinopril 20 MG TAB PO SCH (10:48)
[2023-09-18] MEDS: NEPHROCAPS PO SCH (10:49)
[2023-09-18] MEDS: SODIUM CHLORIDE 0.9% 1,000 ML IV SCH ×2 (10:53→21:48)
[2023-09-18 11:41] LABS: Hematocrit (blood only) 30.4 % (42.0-52.0); Hemoglobin 9.7 g/dl (14.0-18.0)
[2023-09-18] MEDS: ACETAMINOPHEN 325 MG TAB PO PRN (18:07)
[2023-09-18] MEDS ORDERED: POTASSIUM CHLORIDE CRTAB 20 MEQ TABCR PO STA (18:09)
[2023-09-18 18:17] LABS: Hematocrit (blood only) 27.7 % (42.0-52.0)
--- NOTE | 2023-09-18 18:21 | Hospitalist Progress Note ---
Date of Service September 18, 2023 Assessment & Plan (1) Gross hematuria: Plan: 82-year-old male past med hx significant for restless leg syndrome, constipation, GERD, iron deficiency anemia, hypertension, COPD, neuropathy, urinary retention, history of dyspnea, vitamin D deficiency, coming from [facility] because of gross hematuria. Gross hematuria History of urinary retention S/p Prakash yesterday which resulted in gross hematuria Moderate bilateral hydronephrosis on CAT scan Questionable clot versus bladder tumor Urology notified by ER We will monitor H&H, n.p.o. IV fluids, continue Flomax Urology consulted - no intervention today - pt can eat today (09/18) - NPO after MN - will re-assess Close monitor Acute on chronic iron deficiency anemia Questionable acute blood loss anemia Hemoglobin 10.3. Do not know baseline Blood consent obtained We will follow H&H Constipation. Stool softeners . Hypertension - hold lisinopril and Lasix - monitor BP Right lower extremity edema Doppler obtained - no DVT Restless leg syndrome On ropinirole History of COPD continue home inhalers Currently stable DVT prophylaxis - SCDs Disposition med/telemetry Full code Admission and Anticipated Discharge Date Admission Date: September 17, 2023 Subjective Pt seen in follow up of hematuria Currently sitting up in chair, in NAD. eating lunch no fever, chills, chest pain, shortness of breath, or abd. pain Urology consulted - no intervention today, keep NPO after MN, re-eval tmrw Review of Systems Review of Systems: All systems reviewed & are unremarkable except as noted in Subjective Physical Exam Physical Exam: General- Not in di stress Head- atr aumatic Eyes- PER RL. ENT- orophary nx clear Neck- gallardo pple, no JVD. Ele gs- clear to ausc ultation. wheezin g or crackles. He art- regular rhyth m; no murmur, no g allop. Abdomen- n ormal bowel sounds , soft, nontender, no distension. G U - Prakash catheter placed + gross he maturia Extremiti es- no erythema se en, moves extremit ies. Neuro- alert , oriented x 3; PE RRL, no facial pa lsy; no dysarthria ; Skin- warm & dr y Results & Data Results & Data Vital Signs (Past 12 Hours) Vital Signs Temp Pulse Pulse Resp BP Pulse Ox O2 Del Method 09/18/23 15:08 36.6 C 74 18 109/55 L 95 Room Air 09/18/23 08:00 Room Air 09/18/23 11:24 36.7 C 71 18 115/64 95 Room Air 09/18/23 07:28 56 L 09/18/23 07:17 36.7 C 61 18 129/62 96 Room Air Laboratory Results 09/18/23 09/18/23 09/18/23 Range/Units 17:42 11:16 05:28 WBC (4.8-10.8) K/ul RBC (4.70-6.10) M/uL Hgb 9.0 L 9.7 L (14.0-18.0) g/dl Hct 27.7 L 30.4 L (42.0-52.0) % MCV (80.0-100.0) fL MCH (25.0-34.0) pg MCHC (32.0-36.0) g/dL RDW Std Deviation (36.4-46.3) fL RDW Coeff of Ingrid (11.5-14.5) % Plt Count (130-400) K/uL MPV (9.4-12.4) fL Immature Gran % (Auto) % Neut % (Auto) % Lymph % (Auto) % [place] % (Auto) % Eos % (Auto) % Baso % (Auto) % Neut # (Auto) (1.40-6.50) K/uL Lymph # (Auto) (1.20-3.40) K/uL [place] # (Auto) (0.11-0.59) K/uL Eos # (Auto) (0.00-0.50) K/uL Baso # (Auto) (0.00-0.20) K/uL Immature Gran # (Auto) (0.01-0.20) K/uL Sodium 139 (136-145) mmol/L Potassium 3.4 L (3.5-5.1) mmol/L Chloride 103 (98-107) mmol/L Carbon Dioxide 28 (21-32) mmol/L Anion Gap 8 (3-11) BUN 18 (6-23) mg/dl Creatinine 0.94 (0.6-1.4) mg/dl Est Cr Clr Drug Dosing 64.7 ml/min Est GFR ( Amer) 88.4 ml/min Est GFR (Non-Af Amer) 76.3 ml/min BUN/Creatinine Ratio 19.1 (10-20) Glucose 94 (70-99(Fasting)) mg/dl Calcium 7.6 L (8.6-10.3) mg/dl Magnesium 1.6 L (1.7-2.4) mg/dl Urine Color Urine Appearance (Clear) Urine pH (4.5-7.5) Ur Specific [place] (1.000-1.030) Urine Protein (Negative) Urine Glucose (UA) (Negative) Urine Ketones (Negative) Urine Blood (Negative) Urine Nitrite (Negative) Urine Bilirubin (Negative) Urine Urobilinogen (Negative) Ur Leukocyte Esterase (Negative) Urine RBC (0-4) /hpf Urine WBC (0-5) /hpf Ur Epithelial Cells (0-5) /lpf Urine Bacteria (Negative) Nasal Screen MRSA (PCR) (Negative) SARS-CoV-2, RNA, NAAT (NEGATIVE) 09/18/23 09/17/23 09/17/23 Range/Units 05:28 23:15 19:26 WBC 5.37 (4.8-10.8) K/ul RBC 2.95 L (4.70-6.10) M/uL Hgb 8.8 L (14.0-18.0) g/dl Hct 27.0 L (42.0-52.0) % MCV 91.5 (80.0-100.0) fL MCH 29.8 (25.0-34.0) pg MCHC 32.6 (32.0-36.0) g/dL RDW Std Deviation 47.0 H (36.4-46.3) fL RDW Coeff of Ingrid 14.1 (11.5-14.5) % Plt Count 150 (130-400) K/uL MPV 11.7 (9.4-12.4) fL Immature Gran % (Auto) 0.6 % Neut % (Auto) 72.8 % Lymph % (Auto) 16.9 % [place] % (Auto) 6.5 % Eos % (Auto) 3.0 % Baso % (Auto) 0.2 % Neut # (Auto) 3.91 (1.40-6.50) K/uL Lymph # (Auto) 0.91 L (1.20-3.40) K/uL [place] # (Auto) 0.35 (0.11-0.59) K/uL Eos # (Auto) 0.16 (0.00-0.50) K/uL Baso # (Auto) 0.01 (0.00-0.20) K/uL Immature Gran # (Auto) 0.03 (0.01-0.20) K/uL Sodium (136-145) mmol/L Potassium (3.5-5.1) mmol/L Chloride (98-107) mmol/L Carbon Dioxide (21-32) mmol/L Anion Gap (3-11) BUN (6-23) mg/dl Creatinine (0.6-1.4) mg/dl Est Cr Clr Drug Dosing ml/min Est GFR ( Amer) ml/min Est GFR (Non-Af Amer) ml/min BUN/Creatinine Ratio (10-20) Glucose (70-99(Fasting)) mg/dl Calcium (8.6-10.3) mg/dl Magnesium (1.7-2.4) mg/dl Urine Color Urine Appearance (Clear) Urine pH (4.5-7.5) Ur Specific [place] (1.000-1.030) Urine Protein (Negative) Urine Glucose (UA) (Negative) Urine Ketones (Negative) Urine Blood (Negative) Urine Nitrite (Negative) Urine Bilirubin (Negative) Urine Urobilinogen (Negative) Ur Leukocyte Esterase (Negative) Urine RBC (0-4) /hpf Urine WBC (0-5) /hpf Ur Epithelial Cells (0-5) /lpf Urine Bacteria (Negative) Nasal Screen MRSA (PCR) Negative (Negative) SARS-CoV-2, RNA, NAAT NEGATIVE (NEGATIVE) 09/17/23 Range/Units 18:40 WBC (4.8-10.8) K/ul RBC (4.70-6.10) M/uL Hgb (14.0-18.0) g/dl Hct (42.0-52.0) % MCV (80.0-100.0) fL MCH (25.0-34.0) pg MCHC (32.0-36.0) g/dL RDW Std Deviation (36.4-46.3) fL RDW Coeff of Ingrid (11.5-14.5) % Plt Count (130-400) K/uL MPV (9.4-12.4) fL Immature Gran % (Auto) % Neut % (Auto) % Lymph % (Auto) % [place] % (Auto) % Eos % (Auto) % Baso % (Auto) % Neut # (Auto) (1.40-6.50) K/uL Lymph # (Auto) (1.20-3.40) K/uL [place] # (Auto) (0.11-0.59) K/uL Eos # (Auto) (0.00-0.50) K/uL Baso # (Auto) (0.00-0.20) K/uL Immature Gran # (Auto) (0.01-0.20) K/uL Sodium (136-145) mmol/L Potassium (3.5-5.1) mmol/L Chloride (98-107) mmol/L Carbon Dioxide (21-32) mmol/L Anion Gap (3-11) BUN (6-23) mg/dl Creatinine (0.6-1.4) mg/dl Est Cr Clr Drug Dosing ml/min Est GFR ( Amer) ml/min Est GFR (Non-Af Amer) ml/min BUN/Creatinine Ratio (10-20) Glucose (70-99(Fasting)) mg/dl Calcium (8.6-10.3) mg/dl Magnesium (1.7-2.4) mg/dl Urine Color Red Urine Appearance Cloudy A (Clear) Urine pH 7.5 (4.5-7.5) Ur Specific [place] 1.020 (1.000-1.030) Urine Protein 3+ H (Negative) Urine Glucose (UA) Trace H (Negative) Urine Ketones Trace H (Negative) Urine Blood 3+ H (Negative) Urine Nitrite Negative (Negative) Urine Bilirubin Negative (Negative) Urine Urobilinogen Negative (Negative) Ur Leukocyte Esterase Negative (Negative) Urine RBC >30 H (0-4) /hpf Urine WBC 0-5 (0-5) /hpf Ur Epithelial Cells 0-5 (0-5) /lpf Urine Bacteria Negative (Negative) Nasal Screen MRSA (PCR) (Negative) SARS-CoV-2, RNA, NAAT (NEGATIVE) Medications Administered Current Inpatient Medications Acetaminophen (Acetaminophen 325 Mg Tab) 650 mg PO Q4H PRN PRN Reason: Pain or Fever Stop: 10/17/23 23:11 Last Admin: 09/18/23 18:07 Dose: 650 mg Albuterol (Albuterol Hfa 8 Gm Inhaler) 2 puffs INH QID PRN PRN Reason: Shortness Of Breath Stop: 10/17/23 23:11 Furosemide (Furosemide 40 Mg Tab) 40 mg PO DAILY KAYLIN Stop: 10/18/23 08:59 Last Admin: 09/18/23 10:48 Dose: 40 mg Sodium Chloride (Nss) 1,000 mls @ 100 mls/hr IV .Q10H KAYLIN Stop: 10/17/23 23:11 Last Admin: 09/18/23 10:53 Dose: 100 mls/hr Lisinopril (Lisinopril 20 Mg Tab) 20 mg PO DAILY KAYLIN Stop: 10/18/23 08:59 Last Admin: 09/18/23 10:48 Dose: 20 mg Magnesium Oxide (Magnesium Oxide 400 Mg Tab) 400 mg PO BID KAYLIN Stop: 10/18/23 20:59 Morphine Sulfate (Morphine Sulfate 4 Mg/Ml 1 Ml Carp\Vial) 3 mg IV Q4H PRN PRN Reason: Pain Stop: 10/01/23 23:11 Nitroglycerin (Nitroglycerin Sl 0.4 Mg/Tab Tab) 0.4 mg SL Q5M PRN PRN Reason: Chest Pain Stop: 10/17/23 23:11 Polyethylene Glycol (Polyethylene (Miralax) 17 Gm Pack) 17 gm PO DAILY PRN PRN Reason: Constipation Stop: 10/17/23 23:11 Potassium Chloride (Potassium Chloride Crtab 20 Meq Tabcr) 40 meq PO NOW STA Stop: 09/18/23 18:10 Ropinirole HCl (Ropinirole Hcl 1 Mg Tablet) 1 mg PO HS KAYLIN Stop: 10/17/23 23:11 Last Admin: 09/18/23 00:24 Dose: 1 mg Tamsulosin HCl (Tamsulosin Hcl 0.4 Mg Cap) 0.4 mg PO HS KAYLIN Stop: 10/17/23 23:11 Last Admin: 09/18/23 00:24 Dose: 0.4 mg Vitamin B Complex/Folic Acid (Nephrocaps) 1 cap PO DAILY KAYLIN Stop: 10/18/23 08:59 Last Admin: 09/18/23 10:49 Dose: 1 cap Vitamin D (Cholecalciferol 1,000 Units 25 Mcg Tab) 2,000 units PO DAILY KAYLIN Stop: 10/18/23 08:59 Last Admin: 09/18/23 10:48 Dose: 2,000 units
[2023-09-18] MEDS: cefTRIAXone SODIUM 1,000 MG in DEXTROSE 5 % MINI-B 50 ML IV SCH (21:48)
[2023-09-18] MEDS: MAGNESIUM OXIDE 400 MG TAB PO SCH (21:49)
[2023-09-18] MEDS: MELATONIN 3 MG TAB PO PRN (21:50)
[2023-09-19] MEDS ORDERED: Nursing to Pharmacy Communication SCH (04:30)
[2023-09-19 05:56] LABS: Hematocrit (blood only) 28.8 % (42.0-52.0); Hemoglobin 9.3 g/dl (14.0-18.0); Mean Corpuscular Hemoglobin 29.9 pg (25.0-34.0); Mean Corpuscular Hgb Conc 32.3 g/dL (32.0-36.0); Mean Corpuscular Volume 92.6 fL (80.0-100.0); Mean Platelet Volume 11.3 fL (9.4-12.4); Platelet Count 152 K/uL (130-400); RDW Coefficient of Variation 14.5 % (11.5-14.5); RDW Standard Deviation 48.3 fL (36.4-46.3); Red Blood Count 3.11 M/uL (4.70-6.10); White Blood Count 7.55 K/ul (4.8-10.8)
[2023-09-19 06:21] LABS: BUN Creatinine Ratio 21.4 (10-20); Calcium 7.5 mg/dl (8.6-10.3); Creatinine Clr Calc Pharmacy 58.2 ml/min; Est GFR (African American) 79.1 ml/min; Est GFR (Non-African American) 68.3 ml/min; Magnesium 1.6 mg/dl (1.7-2.4); Phosphorus 2.9 mg/dl (2.5-4.9); Potassium 3.5 mmol/L (3.5-5.1)
[2023-09-19] MEDS: ACETAMINOPHEN 325 MG TAB PO PRN ×3 (06:24→20:54)
[2023-09-19] MEDS ORDERED: MAGNESIUM SULFATE / D5W 1 GM/100 ML BAG IV ONE (07:57)
[2023-09-19] MEDS: CHOLECALCIFEROL 1,000 UNITS 25 MCG TAB PO SCH (08:52)
[2023-09-19] MEDS: SODIUM CHLORIDE 0.9% 1,000 ML IV SCH ×2 (08:52→17:33)
[2023-09-19] MEDS: NEPHROCAPS PO SCH (08:52)
[2023-09-19] MEDS: MAGNESIUM OXIDE 400 MG TAB PO SCH ×2 (08:53→20:53)
--- NOTE | 2023-09-19 09:26 | Hospitalist Progress Note ---
Date of Service September 19, 2023 Assessment & Plan (1) Gross hematuria: Plan: 82-year-old male past med hx significant for restless leg syndrome, constipation, GERD, iron deficiency anemia, hypertension, COPD, neuropathy, urinary retention, history of dyspnea, vitamin D deficiency, coming from [facility] because of gross hematuria. Gross hematuria History of urinary retention S/p Cuello which resulted in gross hematuria Moderate bilateral hydronephrosis on CT abd and pelvis 4.4cm density within the bladder. Questionable clot versus bladder tumor Urology evaluation noted Currently NPO for Urology to evaluate again today for possible cystoscopy Continue IV fluid, flomax Currently on IV ceftriaxone Acute on chronic iron deficiency anemia Possible acute blood loss anemia Hemoglobin 10.3. unknown baseline Hb remains stable at 9s in the past 24h Continue to monitor Transfuse prn to keep Hb>7 Constipation. Stool softeners . Hypertension Continue to hold lisinopril and Lasix Monitor BP Right lower extremity edema Doppler obtained - no DVT Restless leg syndrome On ropinirole History of COPD Continue home inhalers Currently stable DVT prophylaxis - SCDs Replete hypomagnesemia Discussed with Guards to allow patient walk around to aid with his chronic back pain/spasms Disposition med/telemetry Full code I spent a total of 45 minutes coordinating, documenting and providing care for this patient excluding time spent in performance of separately billed services Admission and Anticipated Discharge Date Admission Date: September 17, 2023 Subjective Patient seen and examined Reports chronic low back pain and LE spasms worsened due to been bedbound. Denied any abd pain, nausea, vomiting, diarrhea Still having hematuria Denied any dizziness, SOB, cough, chest pain Denied fever, chills Physical Exam Constitutional: + well hydrated; no acute distress Eyes: PERRL, conjunctivae normal, anicteric sclerae ENMT: external ear and nose normal, oropharynx normal Respiratory: normal respiratory effort, lungs clear to auscultation Cardiovascular: Rate/Rhythm: regular rate and regular rhythm S1 S2 Gastrointestinal (Abdomen): normal bowel sounds, soft, nontender, no hepatosplenomegaly Musculoskeletal: No pedal edema Neurologic: PERRL, EOMI, accommodation nl, no face palsy, no dysarthria Genitourinary: Hematuria in cuello Results & Data Results & Data Vital Signs (Past 12 Hours) Vital Signs Temp Pulse Pulse Resp BP Pulse Ox O2 Del Method 09/19/23 07:17 36.8 C 74 18 149/74 H 97 Room Air 09/19/23 07:14 63 09/19/23 05:16 36.8 C 69 16 153/69 H 94 Room Air 09/19/23 03:33 61 09/19/23 03:33 Room Air 09/18/23 23:21 37 C 121 H 16 135/75 94 Room Air Laboratory Results Abnormal lab results 09/18/23 09/18/23 09/19/23 Range/Units 11:16 17:42 05:28 RBC 3.11 L (4.70-6.10) M/uL Hgb 9.7 L 9.0 L 9.3 L (14.0-18.0) g/dl Hct 30.4 L 27.7 L 28.8 L (42.0-52.0) % RDW Std Deviation 48.3 H (36.4-46.3) fL BUN/Creatinine Ratio (10-20) Glucose (70-99(Fasting)) mg/dl Calcium (8.6-10.3) mg/dl Magnesium (1.7-2.4) mg/dl 09/19/23 Range/Units 05:28 RBC (4.70-6.10) M/uL Hgb (14.0-18.0) g/dl Hct (42.0-52.0) % RDW Std Deviation (36.4-46.3) fL BUN/Creatinine Ratio 21.4 H (10-20) Glucose 105 H (70-99(Fasting)) mg/dl Calcium 7.5 L (8.6-10.3) mg/dl Magnesium 1.6 L (1.7-2.4) mg/dl
--- NOTE | 2023-09-19 10:29 | Urology Progress Note ---
Date of Service September 19, 2023 Assessment & Plan (1) Gross hematuria: (2) Urinary retention: Plan Gross hematuria Seems to be appropriately stabilizing Continue antibiotics No culture sent upon initial entry to the hospital Believe he is waiting for culture to be collected now I do not see any role for emergent intervention Okay to return to the [facility] and have him follow-up as an outpatient for full work-up and completion of his care Although tumor certainly very high on the differential, infection also remains as a distinct possibility and covering him with empiric antibiotics until culture results would make sense From my standpoint, it is okay to discharge him to the [facility] with a Prakash catheter in place and we will arrange outpatient follow-up Admission and Anticipated Discharge Date Admission Date: September 17, 2023 Subjective Major changes overnight Subjectively doing well Catheter continues to drain appropriately Dark color, translucent On antibiotics now empirically -ceftriaxone Awaiting culture collection No pain Reviewing his history, he experienced no hematuria until several days prior to his admission Physical Exam Physical Exam: Prakash in place Draining translucent but dark urine, nearly [place] colored Results & Data Vital Signs (Past 12 Hours) Vital Signs Temp Pulse Pulse Resp BP Pulse Ox O2 Del Method 09/19/23 07:17 36.8 C 74 18 149/74 H 97 Room Air 09/19/23 07:14 63 09/19/23 05:16 36.8 C 69 16 153/69 H 94 Room Air 09/19/23 03:33 61 09/19/23 03:33 Room Air 09/18/23 23:21 37 C 121 H 16 135/75 94 Room Air PG Care Time/CCT Total # of Minutes Spent Total Time Spent with Patient: Total time spent is greater than 50% in coordination of care (as documented) at patient's floor/unit and/or counseling patient: Coding Level of Care Code 39122 SUB INP/OBS CARE 2/35MIN Diagnoses Gross hematuria R31.0 Urinary retention R33.9
[2023-09-19 11:40] LABS: RBC Urine Automated >30 /hpf (0-4)
[2023-09-19 11:41] LABS: Bacteria Urine Automated Negative (Negative); Bilirubin Urine Negative (Negative); Blood Urine 3+ (Negative); Cast Urine Automated 0 /lpf (0-5); Epithelial Cell Urine Auto 0-5 /lpf (0-5); Glucose Urine UA Negative (Negative); Ketones Urine Negative (Negative); Nitrite Urine Negative (Negative); Protein Urine 3+ (Negative); Specific Gravity Urine 1.017 (1.000-1.030); Urobilinogen Urine Negative (Negative)
[2023-09-19 11:42] LABS: Appearance Urine Turbid (Clear); Color Urine Red
[2023-09-19 11:46] LABS: WBC Urine Automated >30 /hpf (0-5)
[2023-09-19 11:47] LABS: Epithelial Cell Urine 0-5 /lpf (0-5)
[2023-09-19 11:48] LABS: Bacteria Urine Negative (Negative); RBC Urine >30 /hpf (0-4); WBC Urine >30 /hpf (0-5)
[2023-09-19 17:14] LABS: Hemoglobin 9.4 g/dl (14.0-18.0); Mean Corpuscular Hemoglobin 29.6 pg (25.0-34.0); Mean Corpuscular Hgb Conc 32.4 g/dL (32.0-36.0); Mean Corpuscular Volume 91.2 fL (80.0-100.0); Mean Platelet Volume 11.4 fL (9.4-12.4); Platelet Count 162 K/uL (130-400); RDW Coefficient of Variation 14.5 % (11.5-14.5); RDW Standard Deviation 48.1 fL (36.4-46.3); Red Blood Count 3.18 M/uL (4.70-6.10); White Blood Count 7.24 K/ul (4.8-10.8)
[2023-09-19] MEDS: cefTRIAXone SODIUM 1,000 MG in DEXTROSE 5 % MINI-B 50 ML IV SCH (20:53)
[2023-09-19] MEDS: rOPINIRole HCL 1 MG TABLET PO SCH (20:54)
[2023-09-19] MEDS: MELATONIN 3 MG TAB PO PRN (20:54)
[2023-09-19] MEDS: TAMSULOSIN HCL 0.4 MG CAP PO SCH (20:54)
[2023-09-20] MEDS: SODIUM CHLORIDE 0.9% 1,000 ML IV SCH ×2 (04:09→14:11)
[2023-09-20 06:59] LABS: Hematocrit (blood only) 27.1 % (42.0-52.0); Hemoglobin 8.8 g/dl (14.0-18.0); Mean Corpuscular Hemoglobin 29.9 pg (25.0-34.0); Mean Corpuscular Hgb Conc 32.5 g/dL (32.0-36.0); Mean Corpuscular Volume 92.2 fL (80.0-100.0); Mean Platelet Volume 11.6 fL (9.4-12.4); Platelet Count 149 K/uL (130-400); RDW Coefficient of Variation 14.4 % (11.5-14.5); RDW Standard Deviation 48.1 fL (36.4-46.3); Red Blood Count 2.94 M/uL (4.70-6.10); White Blood Count 6.06 K/ul (4.8-10.8)
[2023-09-20 07:31] LABS: BUN Creatinine Ratio 17.1 (10-20); Calcium 7.8 mg/dl (8.6-10.3); Creatinine Clr Calc Pharmacy 74.2 ml/min; Est GFR (African American) 96.8 ml/min; Est GFR (Non-African American) 83.5 ml/min; Magnesium 1.7 mg/dl (1.7-2.4); Phosphorus 3.2 mg/dl (2.5-4.9); Potassium 3.7 mmol/L (3.5-5.1)
--- NOTE | 2023-09-20 08:22 | Hospitalist Progress Note ---
Date of Service September 20, 2023 Assessment & Plan (1) Gross hematuria: Plan: 82-year-old male past med hx significant for restless leg syndrome, constipation, GERD, iron deficiency anemia, hypertension, COPD, neuropathy, urinary retention, history of dyspnea, vitamin D deficiency, coming from [facility] because of gross hematuria. Gross hematuria History of urinary retention S/p Prakash which resulted in gross hematuria Moderate bilateral hydronephrosis on CT abd and pelvis 4.4cm density within the bladder. Questionable clot versus bladder tumor Urology evaluation noted Continue IV fluid, flomax Currently on IV ceftriaxone UA w/o bacteria, abx recommended by urology Acute on chronic iron deficiency anemia Possible acute blood loss anemia Hemoglobin 10.3. unknown baseline Hb remains stable at 9s in the past 24h Continue to monitor Transfuse prn to keep Hb>7 Constipation. Stool softeners . Hypertension Continue to hold lisinopril and Lasix Monitor BP Right lower extremity edema Doppler obtained - no DVT Restless leg syndrome On ropinirole History of COPD Continue home inhalers Currently stable DVT prophylaxis - SCDs Replete hypomagnesemia - allow patient walk around to aid with his chronic back pain/spasms Disposition med/telemetry Full code Admission and Anticipated Discharge Date Admission Date: September 17, 2023 Subjective Pt seen in follow up of hematuria Sitting up in chair in NAD Subjectively doing well Hematuria improving On antibiotics now empirically -ceftriaxone No pain Review of Systems Review of Systems: All systems reviewed & are unremarkable except as noted in Subjective Physical Exam Physical Exam: General- Not in di stress Head- atr aumatic Eyes- PER RL. ENT- orophary nx clear Neck- gallardo pple, no JVD. Ele gs- clear to ausc ultation. wheezin g or crackles. He art- regular rhyth m; no murmur, no g allop. Abdomen- n ormal bowel sounds , soft, nontender, no distension. G U - Prakash catheter placed + hematuri a improving Extre mities- no erythem a seen, moves extr emities. Neuro- a lert, oriented x 3 ; PERRL, no facia l palsy; no dysart hria; Skin- warm & dry Results & Data Results & Data Vital Signs (Past 12 Hours) Vital Signs Temp Pulse Pulse Resp BP Pulse Ox O2 Del Method 09/20/23 08:06 36.8 C 69 18 186/75 H 94 Room Air 09/20/23 07:12 67 09/20/23 02:49 36.6 C 67 16 149/73 H 96 Room Air 09/19/23 23:00 36.9 C 67 16 124/72 96 Room Air 09/19/23 22:26 67 09/19/23 22:26 Room Air Laboratory Results 09/20/23 09/20/23 09/19/23 Range/Units 06:09 06:09 Unknown WBC 6.06 (4.8-10.8) K/ul RBC 2.94 L (4.70-6.10) M/uL Hgb 8.8 L (14.0-18.0) g/dl Hct 27.1 L (42.0-52.0) % MCV 92.2 (80.0-100.0) fL MCH 29.9 (25.0-34.0) pg MCHC 32.5 (32.0-36.0) g/dL RDW Std Deviation 48.1 H (36.4-46.3) fL RDW Coeff of Ingrid 14.4 (11.5-14.5) % Plt Count 149 (130-400) K/uL MPV 11.6 (9.4-12.4) fL Sodium 138 (136-145) mmol/L Potassium 3.7 (3.5-5.1) mmol/L Chloride 107 (98-107) mmol/L Carbon Dioxide 25 (21-32) mmol/L Anion Gap 6 (3-11) BUN 14 (6-23) mg/dl Creatinine 0.82 (0.6-1.4) mg/dl Est Cr Clr Drug Dosing 74.2 ml/min Est GFR ( Amer) 96.8 ml/min Est GFR (Non-Af Amer) 83.5 ml/min BUN/Creatinine Ratio 17.1 (10-20) Glucose 105 H (70-99(Fasting)) mg/dl Calcium 7.8 L (8.6-10.3) mg/dl Phosphorus 3.2 (2.5-4.9) mg/dl Magnesium 1.7 (1.7-2.4) mg/dl Urine Color Red Urine Appearance Turbid A (Clear) Urine pH 7.0 (4.5-7.5) Ur Specific [place] 1.017 (1.000-1.030) Urine Protein 3+ H (Negative) Urine Glucose (UA) Negative (Negative) Urine Ketones Negative (Negative) Urine Blood 3+ H (Negative) Urine Nitrite Negative (Negative) Urine Bilirubin Negative (Negative) Urine Urobilinogen Negative (Negative) Ur Leukocyte Esterase (Negative) Urine WBC (Auto) >30 H (0-5) /hpf Urine RBC (Auto) >30 H (0-4) /hpf U Hyaline Cast (Auto) 0 (0-5) /lpf U Epithel Cells (Auto) 0-5 (0-5) /lpf Urine Bacteria (Auto) Negative (Negative) Urine RBC >30 H (0-4) /hpf Urine WBC >30 H (0-5) /hpf Ur Epithelial Cells 0-5 (0-5) /lpf Urine Bacteria Negative (Negative) 09/19/23 Range/Units 16:46 WBC 7.24 (4.8-10.8) K/ul RBC 3.18 L (4.70-6.10) M/uL Hgb 9.4 L (14.0-18.0) g/dl Hct 29.0 L (42.0-52.0) % MCV 91.2 (80.0-100.0) fL MCH 29.6 (25.0-34.0) pg MCHC 32.4 (32.0-36.0) g/dL RDW Std Deviation 48.1 H (36.4-46.3) fL RDW Coeff of Ingrid 14.5 (11.5-14.5) % Plt Count 162 (130-400) K/uL MPV 11.4 (9.4-12.4) fL Sodium (136-145) mmol/L Potassium (3.5-5.1) mmol/L Chloride (98-107) mmol/L Carbon Dioxide (21-32) mmol/L Anion Gap (3-11) BUN (6-23) mg/dl Creatinine (0.6-1.4) mg/dl Est Cr Clr Drug Dosing ml/min Est GFR ( Amer) ml/min Est GFR (Non-Af Amer) ml/min BUN/Creatinine Ratio (10-20) Glucose (70-99(Fasting)) mg/dl Calcium (8.6-10.3) mg/dl Phosphorus (2.5-4.9) mg/dl Magnesium (1.7-2.4) mg/dl Urine Color Urine Appearance (Clear) Urine pH (4.5-7.5) Ur Specific [place] (1.000-1.030) Urine Protein (Negative) Urine Glucose (UA) (Negative) Urine Ketones (Negative) Urine Blood (Negative) Urine Nitrite (Negative) Urine Bilirubin (Negative) Urine Urobilinogen (Negative) Ur Leukocyte Esterase (Negative) Urine WBC (Auto) (0-5) /hpf Urine RBC (Auto) (0-4) /hpf U Hyaline Cast (Auto) (0-5) /lpf U Epithel Cells (Auto) (0-5) /lpf Urine Bacteria (Auto) (Negative) Urine RBC (0-4) /hpf Urine WBC (0-5) /hpf Ur Epithelial Cells (0-5) /lpf Urine Bacteria (Negative) Medications Administered Current Inpatient Medications Acetaminophen (Acetaminophen 325 Mg Tab) 650 mg PO Q4H PRN PRN Reason: Pain or Fever Stop: 10/17/23 23:11 Last Admin: 09/19/23 20:54 Dose: 650 mg Albuterol (Albuterol Hfa 8 Gm Inhaler) 2 puffs INH QID PRN PRN Reason: Shortness Of Breath Stop: 10/17/23 23:11 Furosemide (Furosemide 40 Mg Tab) 40 mg PO DAILY KAYLIN Stop: 10/18/23 08:59 Last Admin: 09/18/23 10:48 Dose: 40 mg Sodium Chloride (Nss) 1,000 mls @ 100 mls/hr IV .Q10H KAYLIN Stop: 10/17/23 23:11 Last Admin: 09/20/23 04:09 Dose: 100 mls/hr Ceftriaxone Sodium 1,000 mg/ (Dextrose) 50 mls @ 100 mls/hr IV Q24H KAYLIN; Tato col Stop: 09/28/23 20:59 Last Infusion: 09/19/23 21:27 Dose: Infused Lisinopril (Lisinopril 20 Mg Tab) 20 mg PO DAILY KAYLIN Stop: 10/18/23 08:59 Last Admin: 09/18/23 10:48 Dose: 20 mg Magnesium Oxide (Magnesium Oxide 400 Mg Tab) 400 mg PO BID KAYLIN Stop: 10/18/23 20:59 Last Admin: 09/19/23 20:53 Dose: 400 mg Melatonin (Melatonin 3 Mg Tab) 3 mg PO HS PRN PRN Reason: Sleep Stop: 10/18/23 19:56 Last Admin: 09/19/23 20:54 Dose: 3 mg Morphine Sulfate (Morphine Sulfate 4 Mg/Ml 1 Ml Carp\Vial) 3 mg IV Q4H PRN PRN Reason: Pain Stop: 10/01/23 23:11 Nitroglycerin (Nitroglycerin Sl 0.4 Mg/Tab Tab) 0.4 mg SL Q5M PRN PRN Reason: Chest Pain Stop: 10/17/23 23:11 Polyethylene Glycol (Polyethylene (Miralax) 17 Gm Pack) 17 gm PO DAILY PRN PRN Reason: Constipation Stop: 10/17/23 23:11 Ropinirole HCl (Ropinirole Hcl 1 Mg Tablet) 1 mg PO HS KAYLIN Stop: 10/17/23 23:11 Last Admin: 09/19/23 20:54 Dose: 1 mg Tamsulosin HCl (Tamsulosin Hcl 0.4 Mg Cap) 0.4 mg PO HS KAYLIN Stop: 10/17/23 23:11 Last Admin: 09/19/23 20:54 Dose: 0.4 mg Vitamin B Complex/Folic Acid (Nephrocaps) 1 cap PO DAILY KAYLIN Stop: 10/18/23 08:59 Last Admin: 09/19/23 08:52 Dose: 1 cap Vitamin D (Cholecalciferol 1,000 Units 25 Mcg Tab) 2,000 units PO DAILY KAYLIN Stop: 10/18/23 08:59 Last Admin: 09/19/23 08:52 Dose: 2,000 units
[2023-09-20] MEDS: lisinopril 20 MG TAB PO SCH (10:04)
[2023-09-20] MEDS: ACETAMINOPHEN 325 MG TAB PO PRN ×2 (10:05→20:49)
[2023-09-20] MEDS: MAGNESIUM OXIDE 400 MG TAB PO SCH ×2 (10:05→20:50)
[2023-09-20] MEDS: CHOLECALCIFEROL 1,000 UNITS 25 MCG TAB PO SCH (10:05)
[2023-09-20] MEDS: NEPHROCAPS PO SCH (10:05)
--- NOTE | 2023-09-20 11:43 | Urology Progress Note ---
Date of Service September 20, 2023 Assessment & Plan (1) Gross hematuria: Plan: Gross hematuria resolving cont abx for presumed infection (no culture on admission) urine clearing well ok for d.c home from a standpoint ok to offer voiding trial before d/c, but not vital if he is uncertain plan for outpt f/u for cysto to fully evaluate his anatomy call if further issues during this hospitalization Admission and Anticipated Discharge Date Admission Date: September 17, 2023 Subjective subjectively feeling well states he is ready to return to the [facility] Physical Exam Physical Exam: urine in the tubing is essentially clear still some old blood in the bag abd soft, non-tender Results & Data Vital Signs (Past 12 Hours) Vital Signs Temp Pulse Pulse Resp BP Pulse Ox O2 Del Method 09/20/23 11:29 36.7 C 74 16 160/74 H 97 Room Air 09/20/23 08:06 36.8 C 69 18 186/75 H 94 Room Air 09/20/23 07:12 67 09/20/23 02:49 36.6 C 67 16 149/73 H 96 Room Air PG Care Time/CCT Total # of Minutes Spent Total Time Spent with Patient: Total time spent is greater than 50% in coordination of care (as documented) at patient's floor/unit and/or counseling patient: Coding Level of Care Code 81539 SUB INP/OBS CARE 2/35MIN Diagnoses Gross hematuria R31.0
[2023-09-20] MEDS: ADVANCED PROBIOTIC 1250 MG CAPSULE PO SCH (20:48)
[2023-09-20] MEDS: MELATONIN 3 MG TAB PO PRN (20:49)
[2023-09-20] MEDS: cefTRIAXone SODIUM 1,000 MG in DEXTROSE 5 % MINI-B 50 ML IV SCH (20:49)
[2023-09-20] MEDS: rOPINIRole HCL 1 MG TABLET PO SCH (20:50)
[2023-09-20] MEDS: TAMSULOSIN HCL 0.4 MG CAP PO SCH (20:50)
[2023-09-21] MEDS: SODIUM CHLORIDE 0.9% 1,000 ML IV SCH ×2 (00:13→09:23)
[2023-09-21 06:22] LABS: Hematocrit (blood only) 26.8 % (42.0-52.0); Hemoglobin 8.7 g/dl (14.0-18.0); Mean Corpuscular Hemoglobin 29.5 pg (25.0-34.0); Mean Corpuscular Hgb Conc 32.5 g/dL (32.0-36.0); Mean Corpuscular Volume 90.8 fL (80.0-100.0); Mean Platelet Volume 11.8 fL (9.4-12.4); Platelet Count 144 K/uL (130-400); RDW Coefficient of Variation 14.6 % (11.5-14.5); RDW Standard Deviation 48.3 fL (36.4-46.3); Red Blood Count 2.95 M/uL (4.70-6.10); White Blood Count 6.73 K/ul (4.8-10.8)
[2023-09-21 06:26] LABS: BUN Creatinine Ratio 14.9 (10-20); Calcium 7.6 mg/dl (8.6-10.3); Creatinine Clr Calc Pharmacy 82.2 ml/min; Est GFR (Non-African American) 87.1 ml/min; Magnesium 1.5 mg/dl (1.7-2.4); Phosphorus 3.5 mg/dl (2.5-4.9); Potassium 3.7 mmol/L (3.5-5.1)
[2023-09-21] MEDS: lisinopril 20 MG TAB PO SCH (09:17)
[2023-09-21] MEDS: MAGNESIUM OXIDE 400 MG TAB PO SCH ×2 (09:17→20:33)
[2023-09-21] MEDS: CHOLECALCIFEROL 1,000 UNITS 25 MCG TAB PO SCH (09:17)
[2023-09-21] MEDS: ADVANCED PROBIOTIC 1250 MG CAPSULE PO SCH (09:18)
[2023-09-21] MEDS: NEPHROCAPS PO SCH (09:18)
[2023-09-21] MEDS ORDERED: lisinopril 10 MG TAB PO SCH (12:30)
[2023-09-21] MEDS ORDERED: GADOBUTROL 65ML VIAL IV ONE (14:25)
--- NOTE | 2023-09-21 15:39 | Hospitalist Progress Note ---
Date of Service September 21, 2023 Assessment & Plan (1) Gross hematuria: Plan: 82-year-old male past med hx significant for restless leg syndrome, constipation, GERD, iron deficiency anemia, hypertension, COPD, neuropathy, urinary retention, history of dyspnea, vitamin D deficiency, coming from custodial because of gross hematuria. Gross hematuria History of urinary retention S/p Prakash at custodial which resulted in gross hematuria Moderate bilateral hydronephrosis on CT abd and pelvis 4.4cm density within the bladder. Questionable clot versus bladder tumor Urology consulted, input appreciated --plan for outpatient cystoscopy Will leave Prakash in place UA not suggestive of infection, empirically on IV ceftriaxone (day 4) Continue Flomax LLE weakness Patient reports developing LLE weakness yesterday and difficulty ambulating History of spinal stenosis with remote history of back surgery Will obtain lumbar spine MRI. Consider brain imaging if unremarkable PT/OT Acute on chronic iron deficiency anemia Possible acute blood loss anemia On presentation, Hgb 10.3. Unknown baseline Hgb 8.7 today -likely multifactorial due to acute blood loss anemia from hematuria and dilution from IVF Monitor CBC Hypertension On lisinopril 20 mg and Lasix 40 mg daily BP elevated Lasix has been on hold while receiving IVF -will resume today Increase lisinopril to 30 mg daily Right lower extremity edema Doppler obtained - no DVT Restless leg syndrome On ropinirole History of COPD Continue home inhalers Currently stable DVT PROPHYLAXIS SCDs due to hematuria Dispo-pending given LLE weakness, expect DC back to [facility] when medically s table Patient seen in collaboration with Dr. Ashley. Admission and Anticipated Discharge Date Admission Date: September 17, 2023 Supervising Physician Co-Signing Physician Notes Pt seen and examined by me, care coordinated w/ Shellie AARON, pls refer to her note above for further detail. Pt admitted for hematuria (from custodial), Prakash catheter placed and hematuria is improving. Pt seen by urology, per urology ok to discharge and follow up as outp t. Today pt reports LLE weakness. Pt not seen ambulating. While laying in bed he is able to move LLE. no fever, chills, chest pain, shortness of breath. PT ordered and will obtain imaging of pt's spine. Will discuss with physician in custodial what pt's baseline physical / ambulatory state is. Pt says at baseline he "shuffles." MD Dion Subjective Follow-up for hematuria. Patient seen and examined. Reports left leg weakness that began yesterday. Typically able to ambulate with a walker however had much difficulty walking into the bathroom. Hematuria improving. Denies chest pain and shortness of breath. No abdominal pain or nausea. Review of Systems Review of Systems: All systems reviewed & are unremarkable except as noted in Subjective Physical Exam Constitutional: WD/WN, vitals as above no acute distress Respiratory: normal respiratory effort, lungs clear to auscultation Cardiovascular: Rate/Rhythm: regular rate and regular rhythm Vessels: normal peripheral pulses Extremities: no edema Gastrointestinal (Abdomen): Percussion/Palpation: abdomen soft; abdomen nontender Musculoskeletal: BLLE weakness, L > R Skin: no rashes, warm and dry Psychiatric: A+Ox3, euthymic affect Genitourinary: Prakash in place draining yellow urine, small amount of blood noted in tubing Results & Data Results & Data Vital Signs (Past 12 Hours) Vital Signs Temp Pulse Pulse Resp BP Pulse Ox O2 Del Method 09/21/23 11:56 36.9 C 78 18 185/70 H 96 Room Air 09/21/23 08:04 81 09/21/23 07:30 36.6 C 82 18 165/81 H 93 Room Air 09/21/23 04:58 36.8 C 83 18 160/78 H 96 Room Air Laboratory Results Short CBC 09/21/23 Range/Units 05:28 WBC 6.73 (4.8-10.8) K/ul Hgb 8.7 L (14.0-18.0) g/dl Hct 26.8 L (42.0-52.0) % Plt Count 144 (130-400) K/uL BMP 09/21/23 05:28 Sodium 135 L Potassium 3.7 Chloride 105 Carbon Dioxide 27 BUN 11 Creatinine 0.74 Glucose 109 H Calcium 7.6 L
--- NOTE | 2023-09-21 16:20 | Magnetic Resonance Report ---
MRI OF THE LUMBAR SPINE COMBO CLINICAL HISTORY: Left leg weakness. Low back pain. Hematuria. COMPARISON STUDY: Abdominal CT dated 09/17/2023. TECHNIQUE: MRI of the lumbar spine was performed utilizing various T1 and T2-weighted sequences in th e axial and sagittal planes. Contrast-enhanced sequences are acquired following the IV administration of 7.5 cc of Gadavist. The examination is significantly compromised by motion artifact. FINDINGS: Lumbar spine: Vertebral body height is maintained throughout the lumbar spine. There is minimal retro listhesis at L1-L2 and L2-L3. Alignment is otherwise preserved. Lumbar levocurvature is centered at L 3. Large anterior and lateral marginal osteophytes are seen throughout. 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 Marrow signal intensity is markedly heterogeneous. Severe chronic endpla te changes seen at all lumbar levels. Degenerative endplate edema is noted at L1-L2, L3-L4, and L4-L5 . The transverse processes appear intact. No destructive bony lesion is seen. Intervertebral discs: Disc desiccation and severe loss of height is seen at all lumbar levels. There is partial bony fusion at L5-S1. Spinal cord: The visualized spinal cord is normal in morphology and signal intensity. The conus medul sergio terminates at the T12-L1 interspace. The nerve roots of the cauda equina are normal in morpholo gy. No abnormal postcontrast enhancement is identified. T12-L1: Unremarkable. L1-L2: A posterior disc osteophyte complex minimally effaces the ventral subarachnoid space. This abu ts the transiting nerve roots. There is no significant acquired compromise of the central canal. A le ft lateral disc bulge contributes to subarticular stenosis and may impinge in the exiting left L1 ner ve root. In conjunction with facet arthropathy, there is mild left neural foraminal stenosis. The rig ht neural foramen is patent. L2-L3: A posterior disc osteophyte complex effaces the ventral subarachnoid space. This abuts the tra nsiting nerve roots. There is no significant acquired compromise of the central canal. Lateral disc b ulges contribute to bilateral subarticular stenosis, right greater than left. In conjunction with fac et arthropathy, there is moderate right neural foraminal stenosis. The left neural foramen is patent. L3-L4: A posterior disc osteophyte complex minimally effaces the ventral subarachnoid space. The cent ral canal is clear. A left lateral disc bulge contributes to subarticular stenosis and may abut the e xiting left L3 nerve root. In conjunction with facet arthropathy, there is mild right and moderate le ft neural foraminal stenosis. L4-L5: There is a small posterior disc osteophyte complex. No significant acquired compromise of the central canal is seen. Lateral disc bulges contribute to bilateral subarticular stenosis. This may ab ut the exiting bilateral L4 nerve roots. In conjunction with facet arthropathy, there is moderate jose ateral neural foraminal stenosis, right greater than left. L5-S1: The central canal is clear. Predominantly, facet arthropathy contributes to moderate to severe left neural foraminal stenosis. The right neural foramen appears patent. Sacrum: The imaged sacrum is normal in morphology and signal intensity. Soft tissues: There is fatty atrophy of the paraspinous musculature. There is nonspecific presacral s oft tissue edema. The retroperitoneal structures are grossly unremarkable but incompletely evaluated. Significant bladder wall thickening is suggested on the utility technician sequence. IMPRESSION: 1. Significantly motion compromised examination. 2. Lumbosacral spondylosis and scoliosis as above. There is no significant acquired compromise of the central canal. See discussion for detailed level by level analysis. 3. No destructive bony lesion is seen. 4. Advanced degenerative disc disease as above with multilevel endplate change/edema. 5. There is nonspecific presacral soft tissue edema. Correlate clinically. 6. Significant bladder wall thickening is suggested on the utility technician sequence. Dictated: 09/21/2023 3:27 PM Transcribed: 09/21/2023 3:50 PM Robin [id number] CLARIBEL_Neil [id number] Electronically signed by: Johnson Rosado M.D. 09/21/2023 4:19 PM
[2023-09-21] MEDS ORDERED: MAGNESIUM SULFATE / D5W 1 GM/100 ML BAG IV ONE (17:02)
[2023-09-21] MEDS: FLUTICASONE PROPIONATE NA SPR 16 GM BTL SCH (20:32)
[2023-09-21] MEDS: rOPINIRole HCL 1 MG TABLET PO SCH (20:33)
[2023-09-21] MEDS: cefTRIAXone SODIUM 1,000 MG in DEXTROSE 5 % MINI-B 50 ML IV SCH (20:33)
[2023-09-21] MEDS: TAMSULOSIN HCL 0.4 MG CAP PO SCH (20:33)
[2023-09-22 06:47] LABS: Hematocrit (blood only) 26.6 % (42.0-52.0); Hemoglobin 8.6 g/dl (14.0-18.0); Mean Corpuscular Hemoglobin 29.3 pg (25.0-34.0); Mean Corpuscular Hgb Conc 32.3 g/dL (32.0-36.0); Mean Corpuscular Volume 90.5 fL (80.0-100.0); Mean Platelet Volume 11.7 fL (9.4-12.4); Platelet Count 153 K/uL (130-400); RDW Coefficient of Variation 14.6 % (11.5-14.5); RDW Standard Deviation 48.1 fL (36.4-46.3); Red Blood Count 2.94 M/uL (4.70-6.10); White Blood Count 6.31 K/ul (4.8-10.8)
[2023-09-22 07:15] LABS: Calcium 7.7 mg/dl (8.6-10.3); Est GFR (African American) 97.8 ml/min; Est GFR (Non-African American) 84.4 ml/min; Magnesium 1.7 mg/dl (1.7-2.4); Phosphorus 3.5 mg/dl (2.5-4.9); Potassium 3.5 mmol/L (3.5-5.1)
[2023-09-22] MEDS ORDERED: MAGNESIUM SULFATE / D5W 1 GM/100 ML BAG IV ONE (07:35)
[2023-09-22] MEDS ORDERED: POTASSIUM CHLORIDE CRTAB 20 MEQ TABCR PO STA (07:35)
[2023-09-22] MEDS: MAGNESIUM OXIDE 400 MG TAB PO SCH ×2 (07:51→20:23)
[2023-09-22] MEDS: CHOLECALCIFEROL 1,000 UNITS 25 MCG TAB PO SCH (07:52)
[2023-09-22] MEDS: ADVANCED PROBIOTIC 1250 MG CAPSULE PO SCH (07:52)
[2023-09-22] MEDS: NEPHROCAPS PO SCH (07:52)
[2023-09-22] MEDS: FLUTICASONE PROPIONATE NA SPR 16 GM BTL SCH (07:53)
--- NOTE | 2023-09-22 07:54 | Cardiology Consultation ---
Date of Consultation September 22, 2023 Assessment & Plan (1) Wide-complex tachycardia: (2) Hypertension: Plan IMPRESSION: 82-year-old male admitted for gross hematuria in the setting of Prakash catheter placement. Cardiology consulted due to 2 episodes of a wide-complex tachycardia on 09/21 and 09/22. Patient asymptomatic. Telemetry reviewed: possible VT versus SVT with aberrancy. EKG revealing sinus rhythm with a right bundle branch block and occasional PVCs. Prior EKG on 08/29 showed sinus rhythm with a bifascicular block with heart rates in the 60s History is limited but no confirmed diagnosis of coronary disease. PLAN: Wide complex tachycardia: Likely SVT with aberancy. LV systolic function normal. Echocardiogram to assess structural heart. Soft systolic murmur auscultated on exam. Replace electrolytes for potassium goal of 4.0 and magnesium goal of 2.0. Start metoprolol succinate 25 mg twice daily. Hypertension: Patient remains hypertensive during admission. Recommend titration of lisinopril to 40 mg daily. Case discussed with Dr. Malik-- further recommendations pending review of telemetry. Supervising Physician Co-Signing Physician Notes 82-year-old patient admitted with urologic issues and hematuria. Cardiology consultation requested due to short salvos of wide-complex tachycardia. Patient reports occasional palpitations. Denies chest discomfort, lightheadedness, dizziness, syncope, or near syncope. No history of dysrhythmia. Preliminary review of bedside echocardiogram reveals preserved LV systolic function without significant valvular pathology. PE: VSS. General: NAD, hypertensive. Awake and aler oriented x3. Heart: Regular rhythm, normal S1-S2. 2/6 systolic ejection murmur. Lungs: Clear bilateral, no rales, rhonchi, wheeze. Extremities: No edema. A/P: Agree with above [employer] history, physical exam, assessment and plan. Review of telemetry suggests supraventricular tachycardia with aberrant conduction. Resting bifascicular block noted. Initiate treatment with beta-corona therapy. Supplement electrolytes as indicated. History of Present Illness Reason for Consultation: Vtach on Telemetry Requesting Physician: Slick hospitalist Attending Physician: Tristan Ashley MD History of Present Illness 82-year-old male admitted from [facility] due to gross hematuria. Patient carries a history of urinary retention. Prakash cath placement on 09/16 resulted in gross hematuria. Moderate bilateral hydronephrosis on CAT scan with questionable clot versus bladder tumor. Urology following-- did not recommend emergent intervention and plans to follow up as an outpatient. Cardiology consulted this am due to an episode of wide complex tachycardia seen on telemetry. Upon entrance into the room patient resting comfortably in bed. From a cardiac standpoint he is feeling well. He is somewhat of a poor historian, however, denies any acute cardio vascular complaints. Denies exertional chest pain. No chronic shortness of breath due to a prior 40-year smoking history of 3 packs/day. Occasionally will feel palpitation sensations, however, symptoms are generally nonbothersome and rare. Did not feel the 2 episodes of wide-complex tachycardia that occurred yesterday. Denies any prior cardiac history besides hypertension. No history of coronary disease/TX, diabetes, CVA, or rheumatic fever. Echocardiogram: *PENDING* Telemetry: Sinus rhythm with an average heart rate in the 80s. Experienced 2 episodes of wide-complex tachycardia on 09/21 at 5pm and 09/22 at 5:45 in the morning-- asymptomatic. Lab work revealing low normal potassium of 3.5. Supplemented with 40 mEq of KCl this morning Past medical history: Hypertension GERD COPD Urinary retention Iron deficiency anemia RLS, on ropinirole Allergies Allergy/AdvReac Type Severity Reaction Status Date / Time No Known Allergies Allergy Unverified 09/17/23 19:47 Home Medications Medication Instructions Recorded Confirmed Type albuterol sulfate 90 mcg/actuation 2 puff inhalation QID PRN 09/17/23 09/17/23 History aerosol inhaler Shortness Of Breath cholecalciferol (vitamin D3) 25 50 mcg PO DAILY 09/17/23 09/17/23 History mcg (1,000 unit) capsule (Vitamin D3) furosemide 40 mg tablet (Lasix) 40 mg PO DAILY 09/17/23 09/17/23 History lisinopril 20 mg tablet 20 mg PO DAILY 09/17/23 09/17/23 History ropinirole 1 mg tablet 1 mg PO HS 09/17/23 09/17/23 History tamsulosin 0.4 mg capsule 0.4 mg PO HS 09/17/23 09/17/23 History vit B complex and vit C 1 tab PO DAILY 09/17/23 09/17/23 History no.24-ferrous fum 66 mg-folic 1,000 mcg tablet (Nephron FA) Patient History Medical History Hypertension Social History Smoking Status: Former smoker Tobacco Type: Cigarettes Hx Alcohol Use: No Hx Substance Use: No Preferred Language: German Communication Ability: Effective Time Study Analyst Required: No Beliefs That Will Affect Care: None Current Living Situation: Other Current Living Situation Comment: [facility] Feels Safe at Home: Yes Assistive Devices: None Review of Systems Review of Systems: All systems reviewed & are unremarkable except as noted in HPI & below Physical Exam Constitutional: WD/WN, vitals as above no acute distress Eyes: PERRL, conjunctivae normal, anicteric sclerae Neck: normal visual inspection and trachea midline Respiratory: normal respiratory effort, lungs clear to auscultation Cardiovascular: Rate/Rhythm: regular rate and regular rhythm Heart Sounds: normal S1, normal S2 and + murmur (+systolic murmur) Vessels: no JVD Extremities: no edema Gastrointestinal (Abdomen): normal bowel sounds, soft, nontender, no hepatosplenomegaly Skin: no rashes, warm and dry Psychiatric: A+Ox3, euthymic affect Results & Data Vital Signs (Past 12 Hours) Vital Signs Temp Pulse Pulse Resp BP BP Pulse Ox 09/22/23 07:20 71 09/22/23 03:03 36.9 C 82 18 126/79 94 09/21/23 23:22 37 C 79 18 169/74 H 93 09/22/23 00:14 72 09/21/23 22:56 O2 Del Method 09/22/23 07:20 09/22/23 03:03 Room Air 09/21/23 23:22 Room Air 09/22/23 00:14 09/21/23 22:56 Room Air Laboratory Results CBC 09/22/23 Range/Units 05:47 WBC 6.31 (4.8-10.8) K/ul RBC 2.94 L (4.70-6.10) M/uL Hgb 8.6 L (14.0-18.0) g/dl Hct 26.6 L (42.0-52.0) % Plt Count 153 (130-400) K/uL Comprehensive Metabolic Panel 09/22/23 Range/Units 05:47 Sodium 136 (136-145) mmol/L Potassium 3.5 (3.5-5.1) mmol/L Chloride 103 (98-107) mmol/L Carbon Dioxide 28 (21-32) mmol/L BUN 12 (6-23) mg/dl Creatinine 0.80 (0.6-1.4) mg/dl Glucose 96 (70-99(Fasting)) mg/dl Calcium 7.7 L (8.6-10.3) mg/dl Intake and Output 09/21/23 09/22/23 09/22/23 22:59 06:59 14:59 Intake Total 870 / 2086.667 300 / 2086.667 Output Total 1250 / 2850 1600 / 2850 Balance -380 / -763.333 -1300 / -763.333 Intake: IV 850 / 1766.667 Magnesium Sulfate / D5w 1 gm In 100 / 100 100 ml @ 50 mls/hr IV ONE ONE Rx#:[id number] Sodium Chloride 0.9% 1,000 ml @ 700 / 1616.667 100 mls/hr IV .Q10H [facility] Rx#: [id number] cefTRIAXone SODIUM 1,000 mg In 50 / 50 Dextrose 5 % Mini-B 50 ml @ 100 mls/hr IV Q24H [facility] Rx#: [id number] Oral 20 / 320 300 / 320 Output: Urine Amount (Catheter) 1250 / 2850 1600 / 2850 Rpakash/Indwelling 1250 / 2850 1600 / 2850
[2023-09-22] MEDS ORDERED: lisinopril 10 MG TAB PO SCH (09:00)
--- NOTE | 2023-09-22 09:42 | Electrocardiogram Report ---
Test Reason : Blood Pressure : / mmHG Vent. Rate : 075 BPM Atrial Rate : 075 BPM P-R Int : 172 ms QRS Dur : 162 ms QT Int : 418 ms P-R-T Axes : 065 259 027 degrees QTc Int : 466 ms Sinus rhythm with occasional Premature ventricular complexes Right bundle branch block Left anterior fascicular block Abnormal ECG When compared with ECG of 29-AUG-2023 10:55, Premature ventricular complexes are now Present Confirmed by Mario Greco ([id number]) on 09/22/2023 9:42:10 AM Referred By: Jaciel SCI Confirmed By:Parish Greco
[2023-09-22] MEDS ORDERED: LIDOCAINE 5% 1 PATCH TD STA (10:16)
[2023-09-22] MEDS ORDERED: lisinopril 10 MG TAB PO STA (11:24)
[2023-09-22] MEDS: POLYETHYLENE (MIRALAX) 17 GM PACK PO SCH (12:12)
[2023-09-22] MEDS: FUROSEMIDE 40 MG TAB PO SCH (12:13)
[2023-09-22] MEDS: METOPROLOL SUCC 25MG EXT REL TAB PO SCH ×2 (12:13→20:23)
[2023-09-22] MEDS: guaiFENesin 600 MG TABCR PO SCH ×2 (13:30→20:24)
--- NOTE | 2023-09-22 13:35 | Consultation ---
Date of Consultation September 22, 2023 Assessment & Plan (1) Chronic low back pain: Feliciano is an 82-year-old gentleman with chronic lower back pain and hip pain status post multiple lumbar surgeries. He has a new 2-day new onset of left lower extremity weakness. We have discussed his MRI findings. He is not interested in pursuing any type of surgical intervention. I would agree with this. I would recommend aggressive physical therapy focusing on lower extremity strengthening. Ambulate ad german. We will sign off. Please do not hesitate to contact us if you have any further questions. History of Present Illness Reason for Consultation: Chronic back pain and left lower extremity weakness Attending Physician: Tristan Ashley MD History of Present Illness This is an 82-year-old gentleman who is currently a prisoner at [facility]. He is was admitted to the hospital for gross hematuria in his Prakash catheter on September 17. He has been here since. He states 2 days ago he started with an acute onset of left lower extremity weakness. He has chronic lower back pain as well as bilateral hip pain. He has no new radicular pain. He has undergone what he states is 4-6 prior lumbar procedures all in the [place] area. He is unable to recall when the last one was. He typically ambulates with a walker. Lying down is palliative for him. Prakash catheter intact. Allergies Allergy/AdvReac Type Severity Reaction Status Date / Time No Known Allergies Allergy Unverified 09/17/23 19:47 Home Medications Medication Instructions Recorded Confirmed Type albuterol sulfate 90 mcg/actuation 2 puff inhalation QID PRN 09/17/23 09/17/23 History aerosol inhaler Shortness Of Breath cholecalciferol (vitamin D3) 25 50 mcg PO DAILY 09/17/23 09/17/23 History mcg (1,000 unit) capsule (Vitamin D3) furosemide 40 mg tablet (Lasix) 40 mg PO DAILY 09/17/23 09/17/23 History lisinopril 20 mg tablet 20 mg PO DAILY 09/17/23 09/17/23 History ropinirole 1 mg tablet 1 mg PO HS 09/17/23 09/17/23 History tamsulosin 0.4 mg capsule 0.4 mg PO HS 09/17/23 09/17/23 History vit B complex and vit C 1 tab PO DAILY 09/17/23 09/17/23 History no.24-ferrous fum 66 mg-folic 1,000 mcg tablet (Nephron FA) Patient History Medical History Hypertension Social History Smoking Status: Former smoker Tobacco Type: Cigarettes Hx Alcohol Use: No Hx Substance Use: No Preferred Language: Turkmen Communication Ability: Effective Eeler Required: No Beliefs That Will Affect Care: None Current Living Situation: Other Current Living Situation Comment: [place] Feels Safe at Home: Yes Assistive Devices: None Review of Systems Review of Systems: All systems reviewed & are unremarkable except as noted in HPI & below Physical Exam Physical Exam: He is sitting on the edge of the bed in no acute distress Cooperative with exam Alert and oriented x3 He has well-healed lumbar incisions. He is nontender to palpation percussion throughout the thoracic and lumbar spine He is nontender over the sciatic notch regions bilaterally He has exquisite tenderness over the bilateral greater trochanter bursa regions. He has positive logrolling bilateral lower extremities. Some modest breakaway weakness over the left quadricep otherwise strength is 5/5 bilateral EHL, dorsiflexion, plantarflexion, hamstrings, hip abductor's and hip adductor's No evidence of ankle clonus bilaterally Results & Data Vital Signs (Past 12 Hours) Vital Signs Temp Pulse Pulse Resp BP BP Pulse Ox 09/22/23 12:03 36.8 C 75 16 170/71 H 94 09/22/23 08:33 36.8 C 82 16 172/77 H 94 09/22/23 07:20 71 09/22/23 03:03 36.9 C 82 18 126/79 94 O2 Del Method 09/22/23 12:03 Room Air 09/22/23 08:33 Room Air 09/22/23 07:20 09/22/23 03:03 Room Air Diagnostic Findings [place], [place] [phone] Magnetic Resonance Report Patient:FELICIANO JANSEN [id number] Admit Date:09/17/23 MR#:[id number] Address1:[address] Acct ID:[id number] Address2:LOIS MUNOZ Date:1940 [facility] Zip:[place] [address] Age:82 Location:2N Sex:M Room/Bed:[facility] Att Phy:Tristan Ashley MD Diagnosis:GROSS HEMATURIA Corie Phy:SCI Jaciel Service Date:09/21/23 Fam Phy: Interpreting Phy:Johnson Rosado MDAdmit Phy:Gentry Shah MD Ordering Phy:Kimber Gomez cc: ~ MRI OF THE LUMBAR SPINE COMBO CLINICAL HISTORY: Left leg weakness. Low back pain. Hematuria. COMPARISON STUDY: Abdominal CT dated 09/17/2023. TECHNIQUE: MRI of the lumbar spine was performed utilizing various T1 and T2- weighted sequences in the axial and sagittal planes. Contrast-enhanced sequences are acquired following the IV administration of 7.5 cc of Gadavist. The examination is significantly compromised by motion artifact. FINDINGS: Lumbar spine: Vertebral body height is maintained throughout the lumbar spine. There is minimal retrolisthesis at L1-L2 and L2-L3. Alignment is otherwise preserved. Lumbar levocurvature is centered at L3. Large anterior and lateral marginal osteophytes are seen throughout. 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 Marrow signal intensity is markedly heterogeneous. Severe chronic endplate changes seen at all lumbar levels. Degenerative endplate edema is noted at L1-L2, L3-L4, and L4-L5. The transverse processes appear intact. No destructive bony lesion is seen. Intervertebral discs: Disc desiccation and severe loss of height is seen at all lumbar levels. There is partial bony fusion at L5-S1. Spinal cord: The visualized spinal cord is normal in morphology and signal intensity. The conus medullaris terminates at the T12-L1 interspace. The nerve roots of the cauda equina are normal in morphology. No abnormal postcontrast enhancement is identified. T12-L1: Unremarkable. L1-L2: A posterior disc osteophyte complex minimally effaces the ventral subarachnoid space. This abuts the transiting nerve roots. There is no significant acquired compromise of the central canal. A left lateral disc bulge contributes to subarticular stenosis and may impinge in the exiting left L1 nerve root. In conjunction with facet arthropathy, there is mild left neural foraminal stenosis. The right neural foramen is patent. L2-L3: A posterior disc osteophyte complex effaces the ventral subarachnoid space. This abuts the transiting nerve roots. There is no significant acquired compromise of the central canal. Lateral disc bulges contribute to bilateral subarticular stenosis, right greater than left. In conjunction with facet arthropathy, there is moderate right neural foraminal stenosis. The left neural foramen is patent. L3-L4: A posterior disc osteophyte complex minimally effaces the ventral subarachnoid space. The central canal is clear. A left lateral disc bulge contributes to subarticular stenosis and may abut the exiting left L3 nerve root. In conjunction with facet arthropathy, there is mild right and moderate left neural foraminal stenosis. L4-L5: There is a small posterior disc osteophyte complex. No significant acquired compromise of the central canal is seen. Lateral disc bulges contribute to bilateral subarticular stenosis. This may abut the exiting bilateral L4 nerve roots. In conjunction with facet arthropathy, there is moderate bilateral neural foraminal stenosis, right greater than left. L5-S1: The central canal is clear. Predominantly, facet arthropathy contributes to moderate to severe left neural foraminal stenosis. The right neural foramen appears patent. Sacrum: The imaged sacrum is normal in morphology and signal intensity. Soft tissues: There is fatty atrophy of the paraspinous musculature. There is nonspecific presacral soft tissue edema. The retroperitoneal structures are grossly unremarkable but incompletely evaluated. Significant bladder wall thickening is suggested on the qa software test engineer sequence. IMPRESSION: 1. Significantly motion compromised examination. 2. Lumbosacral spondylosis and scoliosis as above. There is no significant acquired compromise of the central canal. See discussion for detailed level by level analysis. 3. No destructive bony lesion is seen. 4. Advanced degenerative disc disease as above with multilevel endplate change/edema. 5. There is nonspecific presacral soft tissue edema. Correlate clinically. 6. Significant bladder wall thickening is suggested on the qa software test engineer sequence. Dictated: 09/21/2023 3:27 PM Transcribed: 09/21/2023 3:50 PM Robin [id number] CLARIBEL_Neil [id number] Electronically signed by: Johnson Rosado M.D. 09/21/2023 4:19 PM Dictated:09/21/23 1527 Transcribed: 09/21/23 1558
--- NOTE | 2023-09-22 14:48 | Ultrasound Report ---
ULTRASOUND LEFT LOWER EXTREMITY VENOUS CLINICAL HISTORY: Left leg weakness. COMPARISON STUDY: No priors. TECHNIQUE: Real-time, grayscale, and color Doppler sonography of the deep veins of the left lower ext remity was performed from the inguinal crease to the calf. Compression and augmentation were utilized . FINDINGS: There is no sonographic evidence of deep venous thrombosis identified in the left lower ext remity. The common femoral, superficial femoral, and popliteal veins are patent and normally compress ible. The greater saphenous vein and the profunda femoris vein at the junction with the common femora l vein are clear. The visualized calf veins are patent. IMPRESSION: There is no sonographic evidence of deep venous thrombosis identified in the left lower e xtremity. ACT 112: Negative or not required by law. Electronically signed by: Johnson Rosado M.D. 09/22/2023 2:47 PM
--- NOTE | 2023-09-22 18:50 | Hospitalist Progress Note ---
Date of Service September 22, 2023 Assessment & Plan (1) Gross hematuria: Plan: 82-year-old male past med hx significant for restless leg syndrome, constipation, GERD, iron deficiency anemia, hypertension, COPD, neuropathy, urinary retention, history of dyspnea, vitamin D deficiency, coming from halfway because of gross hematuria. Gross hematuria History of urinary retention S/p Prakash at halfway which resulted in gross hematuria Moderate bilateral hydronephrosis on CT abd and pelvis 4.4cm density within the bladder. Questionable clot versus bladder tumor Urology consulted, input appreciated --plan for outpatient cystoscopy Will leave Prakash in place UA not suggestive of infection, empirically on IV ceftriaxone Continue Flomax LLE weakness Patient reports developing LLE weakness yesterday and difficulty ambulating History of spinal stenosis with remote history of back surgery Obtained lumbar spine MRI abd doppler. doppler negat. for DVT PT/OT, orthospine consult Acute on chronic iron deficiency anemia Possible acute blood loss anemia On presentation, Hgb 10.3. Unknown baseline Hgb 8.7 -likely multifactorial due to acute blood loss anemia from hematuria and dilution from IVF Monitor CBC Hypertension On lisinopril 20 mg and Lasix 40 mg daily BP elevated Lasix has been on hold while receiving IVF - now resumed Increase lisinopril to 30 mg daily Right lower extremity edema Doppler obtained - no DVT edema resolved Restless leg syndrome On ropinirole History of COPD Continue home inhalers Currently stable DVT PROPHYLAXIS SCDs due to hematuria Dispo-pending given LLE weakness, expect DC back to [facility] when medically stable Admission and Anticipated Discharge Date Admission Date: September 17, 2023 Subjective Follow-up for hematuria. Patient seen and examined. Reports left leg weakness that has worsened. Lumbar spine MRI obtained Typically able to ambulate with a walker and "shuffle". Hematuria improving. Denies chest pain or shortness of breath. No abdominal pain or nausea. Today arrhythmia reported on tele Review of Systems Review of Systems: All systems reviewed & are unremarkable except as noted in Subjective Physical Exam Physical Exam: General- Not in di stress Head- atr aumatic Eyes- PER RL. ENT- orophary nx clear Neck- gallardo pple, no JVD. Ele gs- clear to ausc ultation. wheezin g or crackles. He art- regular rhyth m; no murmur, no g allop. Abdomen- n ormal bowel sounds , soft, nontender, no distension. G U - Prakash catheter placed + hematuri a improving Extre mities- no erythem a seen, moves extr emities while layi ng in bed, lower b ack pain reported w/ LLE movement. Neuro- alert, orie nted x 3; PERRL, no facial palsy; n o dysarthria; Ski n- warm & dry Results & Data Results & Data Vital Signs (Past 12 Hours) Vital Signs Temp Pulse Pulse Resp BP Pulse Ox O2 Del Method 09/22/23 16:11 37.2 C 87 16 177/85 H 95 Room Air 09/22/23 12:03 36.8 C 75 16 170/71 H 94 Room Air 09/22/23 08:33 36.8 C 82 16 172/77 H 94 Room Air 09/22/23 07:20 71 Laboratory Results 09/22/23 09/22/23 Range/Units 05:47 05:47 WBC 6.31 (4.8-10.8) K/ul RBC 2.94 L (4.70-6.10) M/uL Hgb 8.6 L (14.0-18.0) g/dl Hct 26.6 L (42.0-52.0) % MCV 90.5 (80.0-100.0) fL MCH 29.3 (25.0-34.0) pg MCHC 32.3 (32.0-36.0) g/dL RDW Std Deviation 48.1 H (36.4-46.3) fL RDW Coeff of Ingrid 14.6 H (11.5-14.5) % Plt Count 153 (130-400) K/uL MPV 11.7 (9.4-12.4) fL Sodium 136 (136-145) mmol/L Potassium 3.5 (3.5-5.1) mmol/L Chloride 103 (98-107) mmol/L Carbon Dioxide 28 (21-32) mmol/L Anion Gap 5 (3-11) BUN 12 (6-23) mg/dl Creatinine 0.80 (0.6-1.4) mg/dl Est Cr Clr Drug Dosing 76.0 ml/min Est GFR ( Amer) 97.8 ml/min Est GFR (Non-Af Amer) 84.4 ml/min BUN/Creatinine Ratio 15.0 (10-20) Glucose 96 (70-99(Fasting)) mg/dl Calcium 7.7 L (8.6-10.3) mg/dl Phosphorus 3.5 (2.5-4.9) mg/dl Magnesium 1.7 (1.7-2.4) mg/dl Medications Administered Current Inpatient Medications Acetaminophen (Acetaminophen 325 Mg Tab) 650 mg PO Q4H PRN PRN Reason: Pain or Fever Stop: 10/17/23 23:11 Last Admin: 09/20/23 20:49 Dose: 650 mg Albuterol (Albuterol Hfa 8 Gm Inhaler) 2 puffs INH QID PRN PRN Reason: Shortness Of Breath Stop: 10/17/23 23:11 Fluticasone Propionate (Fluticasone Propionate Na Spr 16 Gm Btl) 2 sprays NA DAILY KAYLIN Stop: 10/21/23 20:04 Last Admin: 09/22/23 07:53 Dose: 2 sprays Furosemide (Furosemide 40 Mg Tab) 40 mg PO DAILY KAYLIN Stop: 10/18/23 08:59 Last Admin: 09/22/23 12:13 Dose: 40 mg Guaifenesin (Guaifenesin 600 Mg Tabcr) 600 mg PO Q12 KAYLIN Stop: 10/22/23 12:44 Last Admin: 09/22/23 13:30 Dose: 600 mg Ceftriaxone Sodium 1,000 mg/ (Dextrose) 50 mls @ 100 mls/hr IV Q24H KAYLIN; Protocol Stop: 09/28/23 20:59 Last Infusion: 09/21/23 21:45 Dose: Infused Lactobacillus Acidophilus (Advanced Probiotic 1250 Mg Capsule) 2 cap PO DAILY KAYLIN Stop: 10/20/23 19:44 Last Admin: 09/22/23 07:52 Dose: 2 cap Lisinopril (Lisinopril 40 Mg Tab) 40 mg PO DAILY KAYLIN Stop: 10/23/23 08:59 Magnesium Oxide (Magnesium Oxide 400 Mg Tab) 400 mg PO BID KAYLIN Stop: 10/18/23 20:59 Last Admin: 09/22/23 07:51 Dose: 400 mg Melatonin (Melatonin 3 Mg Tab) 3 mg PO HS PRN PRN Reason: Sleep Stop: 10/18/23 19:56 Last Admin: 09/20/23 20:49 Dose: 3 mg Metoprolol Succinate (Metoprolol Succ 25mg Ext Rel Tab) 25 mg PO BID KAYLIN Stop: 10/22/23 11:29 Last Admin: 09/22/23 12:13 Dose: 25 mg Miscellaneous (Remove Lidoderm Patch) 1 each N/A TODAY@2100 [facility] Stop: 09/22/23 21:01 Morphine Sulfate (Morphine Sulfate 4 Mg/Ml 1 Ml Carp\\Vial) 3 mg IV Q4H PRN PRN Reason: Pain Stop: 10/01/23 23:11 Nitroglycerin (Nitroglycerin Sl 0.4 Mg/Tab Tab) 0.4 mg SL Q5M PRN PRN Reason: Chest Pain Stop: 10/17/23 23:11 Polyethylene Glycol (Polyethylene (Miralax) 17 Gm Pack) 17 gm PO DAILY PRN PRN Reason: Constipation Stop: 10/17/23 23:11 Polyethylene Glycol (Polyethylene (Miralax) 17 Gm Pack) 17 gm PO DAILY KAYLIN Stop: 10/22/23 10:29 Last Admin: 09/22/23 12:12 Dose: Not Given Ropinirole HCl (Ropinirole Hcl 1 Mg Tablet) 1 mg PO HS KAYLIN Stop: 10/17/23 23:11 Last Admin: 09/21/23 20:33 Dose: 1 mg Tamsulosin HCl (Tamsulosin Hcl 0.4 Mg Cap) 0.4 mg PO HS KAYLIN Stop: 10/17/23 23:11 Last Admin: 09/21/23 20:33 Dose: 0.4 mg Vitamin B Complex/Folic Acid (Nephrocaps) 1 cap PO DAILY KAYLIN Stop: 10/18/23 08:59 Last Admin: 09/22/23 07:52 Dose: 1 cap Vitamin D (Cholecalciferol 1,000 Units 25 Mcg Tab) 2,000 units PO DAILY KAYLIN Stop: 10/18/23 08:59 Last Admin: 09/22/23 07:52 Dose: 2,000 units
[2023-09-22] MEDS: ACETAMINOPHEN 325 MG TAB PO PRN (20:22)
[2023-09-22] MEDS: MELATONIN 3 MG TAB PO PRN (20:23)
[2023-09-22] MEDS: rOPINIRole HCL 1 MG TABLET PO SCH (20:24)
[2023-09-22] MEDS: TAMSULOSIN HCL 0.4 MG CAP PO SCH (20:25)
[2023-09-22] MEDS: cefTRIAXone SODIUM 1,000 MG in DEXTROSE 5 % MINI-B 50 ML IV SCH (20:29)
[2023-09-23 06:45] LABS: Hematocrit (blood only) 27.3 % (42.0-52.0); Hemoglobin 8.7 g/dl (14.0-18.0); Mean Corpuscular Hemoglobin 29.1 pg (25.0-34.0); Mean Corpuscular Hgb Conc 31.9 g/dL (32.0-36.0); Mean Corpuscular Volume 91.3 fL (80.0-100.0); Mean Platelet Volume 11.4 fL (9.4-12.4); Platelet Count 174 K/uL (130-400); RDW Coefficient of Variation 14.7 % (11.5-14.5); Red Blood Count 2.99 M/uL (4.70-6.10); White Blood Count 8.41 K/ul (4.8-10.8)
[2023-09-23 07:06] LABS: BUN Creatinine Ratio 23.5 (10-20); Creatinine Clr Calc Pharmacy 89.5 ml/min; Est GFR (African American) 104.5 ml/min; Est GFR (Non-African American) 90.2 ml/min; Magnesium 1.8 mg/dl (1.7-2.4); Phosphorus 3.9 mg/dl (2.5-4.9); Potassium 3.7 mmol/L (3.5-5.1)
--- NOTE | 2023-09-23 07:06 | Cardiology Progress Note ---
Date of Service September 23, 2023 Assessment & Plan (1) Wide-complex tachycardia: (2) SVT (supraventricular tachycardia): (3) Bifascicular block: (4) Hypertension: Plan IMPRESSION: 82-year-old patient admitted with urologic issues and hematuria. Cardiology consultation requested due to short salvos of wide-complex tachycardia. Review of telemetry suggests supraventricular tachycardia with aberrant conduction. Resting bifascicular block noted. History is limited but no confirmed diagnosis of coronary disease. Echo with a preserved LV systolic function and no wall motion abnormalities PLAN: Wide complex tachycardia: Likely SVT with aberrant conduction. LV systolic function normal. Replace electrolytes for potassium goal of 4.0 and magnesium goal of 2.0. We will give an additional 20 mill equivalents of KCl this morning. And heart rates controlled on telemetry. Patient asymptomatic with SVT--Ectopy minimal. Continue metoprolol succinate 25 mg twice daily. Hypertension: Blood pressures improved. Continue lisinopril to 40 mg daily. Case discussed with Dr. Malik--no further recommendations from a cardiac standpoint. We will sign off Admission and Anticipated Discharge Date Admission Date: September 17, 2023 Supervising Physician Co-Signing Physician Notes 82-year-old patient admitted with urologic issues and hematuria. Tolerating beta-corona therapy. Isolated brief salvos of paroxysmal supraventricular tachycardia overnight. No symptoms reported. PE: VSS. General: NAD, hypertensive. Awake and aler oriented x3. Heart: Regular rhythm, normal S1-S2. 2/6 systolic ejection murmur. Lungs: Clear bilateral, no rales, rhonchi, wheeze. Extremities: No edema. A/P: Agree with above PHYSICIAN PRESIDENT history, physical exam, assessment and plan. Continue beta-corona therapy. Supplement electrolytes as indicated. No further inpatient cardiac testing or intervention at this time. Cardiology will sign off. Please call with questions. Subjective 82-year-old male initially admitted for gross hematuria in the setting of Prakash catheter placement. Cardiology consulted due to 2 episodes of a wide-complex tachycardia on 09/21 and 09/22, asymptomatic Review of telemetry suggests supraventricular tachycardia with aberrant conduction. Resting bifascicular block noted. 09/22/2023: Metoprolol succinate 25 mg twice daily started. Patient was hypertensive, lisinopril increased to 40 mg daily Echo with normal LV systolic function mild concentric LVH no wall motion abnormalities. Mild MR and TR. 09/23/2023: Chart and telemetry review. Patient seen and examined at bedside. Upon entrance into the room patient resting comfortably in bed. No acute concerns. Denies any chest pain shortness of breath or palpitations. No lightheadedness or dizziness. Eager for discharge. Telemetry: Sinus rhythm with an IVCD in the 70s. One 10 beat run of SVT with aberrant conduction at 8:25 PM on 09/22/2023 none observed since on telemetry. Review of Systems Review of Systems: All systems reviewed & are unremarkable except as noted in HPI & below Physical Exam Constitutional: WD/WN, vitals as above no acute distress Eyes: PERRL, conjunctivae normal, anicteric sclerae Neck: normal visual inspection and trachea midline Respiratory: normal respiratory effort, lungs clear to auscultation Cardiovascular: Rate/Rhythm: regular rate and regular rhythm Heart Sounds: normal S1, normal S2 and + murmur (+systolic murmur) Vessels: no JVD Extremities: no edema Gastrointestinal (Abdomen): normal bowel sounds, soft, nontender, no hepatosplenomegaly Skin: no rashes, warm and dry Psychiatric: A+Ox3, euthymic affect Results & Data Vital Signs (Past 12 Hours) Vital Signs Temp Pulse Pulse Resp BP BP Pulse Ox 09/23/23 03:00 37 C 72 18 120/64 96 09/22/23 23:29 68 09/22/23 22:26 36.9 C 65 18 117/68 95 09/22/23 21:35 O2 Del Method 09/23/23 03:00 Room Air 09/22/23 23:29 09/22/23 22:26 Room Air 09/22/23 21:35 Room Air Laboratory Results CBC 09/23/23 Range/Units 06:07 WBC 8.41 (4.8-10.8) K/ul RBC 2.99 L (4.70-6.10) M/uL Hgb 8.7 L (14.0-18.0) g/dl Hct 27.3 L (42.0-52.0) % Plt Count 174 (130-400) K/uL Comprehensive Metabolic Panel 09/23/23 Range/Units 06:07 Sodium 134 L (136-145) mmol/L Potassium 3.7 (3.5-5.1) mmol/L Chloride 99 (98-107) mmol/L Carbon Dioxide 29 (21-32) mmol/L BUN 16 (6-23) mg/dl Creatinine 0.68 (0.6-1.4) mg/dl Glucose 103 H (70-99(Fasting)) mg/dl Calcium 8.0 L (8.6-10.3) mg/dl Intake and Output 09/22/23 09/23/23 09/23/23 22:59 06:59 14:59 Intake Total 50 / 150 Output Total 1200 / 3201 300 / 3201 Balance -1150 / -3051 -300 / -3051 Intake: IV 50 / 150 cefTRIAXone SODIUM 1,000 mg In 50 / 50 Dextrose 5 % Mini-B 50 ml @ 100 mls/hr IV Q24H [facility] Rx#: [id number] Output: Urine Amount (Catheter) 1200 / 3200 300 / 3200 Prakash/Indwelling 1200 / 3200 300 / 3200
[2023-09-23] MEDS ORDERED: lisinopril 40 MG TAB PO SCH (09:00)
[2023-09-23] MEDS ORDERED: POTASSIUM CHLORIDE CRTAB 20 MEQ TABCR PO STA (09:25)
[2023-09-23] MEDS: CHOLECALCIFEROL 1,000 UNITS 25 MCG TAB PO SCH (09:35)
[2023-09-23] MEDS: guaiFENesin 600 MG TABCR PO SCH (09:35)
[2023-09-23] MEDS: ADVANCED PROBIOTIC 1250 MG CAPSULE PO SCH (09:35)
[2023-09-23] MEDS: NEPHROCAPS PO SCH (09:36)
[2023-09-23] MEDS: FUROSEMIDE 40 MG TAB PO SCH (09:36)
[2023-09-23] MEDS: METOPROLOL SUCC 25MG EXT REL TAB PO SCH (09:36)
[2023-09-23] MEDS: FLUTICASONE PROPIONATE NA SPR 16 GM BTL SCH (09:37)
[2023-09-23] MEDS: MAGNESIUM OXIDE 400 MG TAB PO SCH (09:37)
[2023-09-23] MEDS: POLYETHYLENE (MIRALAX) 17 GM PACK PO SCH (09:37)
--- NOTE | 2023-09-23 13:58 | Hospitalist Progress Note ---
Date of Service September 23, 2023 Assessment & Plan (1) Gross hematuria: Plan: Patient is an 82-year-old male past med hx significant for restless leg syndrome, constipation, GERD, iron deficiency anemia, hypertension, COPD, neuropathy, urinary retention, history of dyspnea, vitamin D deficiency, coming from shelter because of gross hematuria. Gross hematuria H/O Urinary retention Urinary bladder density DD: Malignancy S/p Prakash at shelter which resulted in gross hematuria --CT ABD:Moderate bilateral hydroureteronephrosis, related to the bladder. Moderate bladder wall thickening with adjacent fluid and stranding. Prakash balloon and gas within the bladder. In addition, 4.4 cm density within the bladder. This could reflect clot or a bladder tumor. Moderate amount of stool within the rectum. No evidence for a bowel obstruction. No bowel wall thic kening. Hiatal hernia. -- Empirically received IV Rocephin for 5 days Continue Flomax Continue Prakash catheter Appreciate urology input Plan for outpatient voiding trial, cystoscopy Needs follow-up with urology upon discharge Left LE weakness Advanced degenerative disc disease Ambulatory dysfunction H/O Spinal stenosis with remote history of back surgery --Venous Doppler:There is no sonographic evidence of deep venous thrombosis identified in the left lower extremity. --MRI Lumbar Spine:Significantly motion compromised examination. Lumbosacral spo ndylosis and scoliosis as above. There is no significant acquired compromise of the central canal. See discussion for detailed level by level analysis. No destructive bony lesion is seen. Advanced degenerative disc disease as above with multilevel endplate change/edema. There is nonspecific presacral soft tissue edema. Correlate clinically. Significant bladder wall thickening is suggested on the free lance model sequence. -- Appreciate orthopedic spine input: Patient not interested in surgical intervention. Aggressive PT OT. Ambulate ad german. --Fall precautions Continue PT OT: [facility]commends [facility] Acute on chronic iron deficiency anemia Possible acute blood loss anemia On presentation, Hgb 10.3. 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 DVT Px SCDs Re:Hematuria Disposition [facility] Admission and Anticipated Discharge Date Admission Date: September 17, 2023 Subjective Patient is seen and examined at bedside Complains of back pain which is controlled Has intermittent hematuria Discussed with urology today Patient denies any chest pain, dyspnea, dizziness, nausea, vomiting, abdominal pain No other complaints Review of Systems Review of Systems: All systems reviewed & are unremarkable except as noted in Subjective Physical Exam Physical Exam: Physical Exam: Vitals signs as noted above General Appearance:Thin, no apparent distress Head: normocephalic, Atraumatic Eyes: normal inspection, EOMI Neck: supple, Trachea midline Respiratory/Chest: Normal breath sounds, CTA, No accessory muscle use Cardiovascular: S1, S2, No murmur Abdomen/GI:Soft, Non tender, Bowel sounds present : +Prakash Extremities/Musculoskeletal:normal inspection, no edema Neurologic/Psych:AAOX3, grossly no focal neurological deficits Skin: normal color, warm Results & Data Results & Data Vital Signs (Past 12 Hours) Vital Signs Temp Pulse Pulse Resp BP Pulse Ox O2 Del Method 09/23/23 12:12 36.8 C 65 17 137/72 96 Room Air 09/23/23 08:00 Room Air 09/23/23 08:10 36.6 C 67 18 128/77 96 Room Air 09/23/23 07:11 62 09/23/23 03:00 37 C 72 18 120/64 96 Room Air Laboratory Results Short CBC 09/23/23 Range/Units 06:07 WBC 8.41 (4.8-10.8) K/ul Hgb 8.7 L (14.0-18.0) g/dl Hct 27.3 L (42.0-52.0) % Plt Count 174 (130-400) K/uL BMP 09/23/23 06:07 Sodium 134 L Potassium 3.7 Chloride 99 Carbon Dioxide 29 BUN 16 Creatinine 0.68 Glucose 103 H Calcium 8.0 L
--- NOTE | 2023-09-23 14:11 | Discharge Summary ---
Date of Service September 23, 2023 Admission HPI Per Admitting Provider 82-year-old male past med history significant for restless leg syndrome, constipation, GERD, iron deficiency anemia, hypertension, COPD, neuropathy, urinary retention, history of dyspnea, vitamin D deficiency, coming [facility] because of gross hematuria. Patient states he has urinary retention for long time. Yesterday Prakash was placed after that developed hematuria which did not resolve so he was brought to the ER. Has chronic back pain and hip pain. Denies any nausea or vomiting. No headache. No cough. No chest pain or shortness of breath. Appetite is okay. Ambulates with walker. Currently resti ng comfortably and hemodynamically stable. Past medical history as mentioned above Past surgical history. States had 4 back surgeries. Had a neck surgery. States had right hip replacement. Social history. Currently present. States last time he smoked was 40 years ago. States last time he drank alcohol was 40 years ago. Family history. States mother from cancer. Father from black lung Admission Exam Per Admitting Provider General- Not in distress Head- atraumatic Eyes- PERRL. ENT- oropharynx clear Neck- supple, no JVD. Lungs- clear to auscultation. wheezing or crackles. Heart- regular rhythm; no murmur, no gallop. Abdomen- normal bowel sounds, soft, nontender, no distension. Extremities- right lower extremity edema present. no erythema seen. Neuro- alert, oriented x 3; PERRL, no facial palsy; no dysarthria; Skin- warm & dry Principal Diagnosis Gross hematuria Urinary bladder density DD: Tumor/Malignancy Supraventricular tachycardia Advanced degenerative disc disease Ambulatory dysfunction Hypertension Discharge Data Allergies Allergy/AdvReac Type Severity Reaction Status Date / Time No Known Allergies Allergy Unverified 09/17/23 19:47 Consultations 09/17/23 19:12 ED Decision to Admit Stat 09/18/23 08:00 Consult Urology Routine 09/22/23 07:40 Consult Cardiology Routine 09/22/23 10:17 Consult Orthopedic Spine Surgery Routine Procedures Performed Laboratory Results WBC 8.41 K/ul (4.8-10.8) 09/23/23 06:07 RBC 2.99 M/uL (4.70-6.10) L 09/23/23 06:07 Hgb 8.7 g/dl (14.0-18.0) L 09/23/23 06:07 Hct 27.3 % (42.0-52.0) L 09/23/23 06:07 MCV 91.3 fL (80.0-100.0) 09/23/23 06:07 MCH 29.1 pg (25.0-34.0) 09/23/23 06:07 MCHC 31.9 g/dL (32.0-36.0) L 09/23/23 06:07 RDW Std Deviation 49.0 fL (36.4-46.3) H 09/23/23 06:07 RDW Coeff of Ingrid 14.7 % (11.5-14.5) H 09/23/23 06:07 Plt Count 174 K/uL (130-400) 09/23/23 06:07 MPV 11.4 fL (9.4-12.4) 09/23/23 06:07 Immature Gran % (Auto) 0.6 % 09/18/23 05:28 Neut % (Auto) 72.8 % 09/18/23 05:28 Lymph % (Auto) 16.9 % 09/18/23 05:28 Castro % (Auto) 6.5 % 09/18/23 05:28 Eos % (Auto) 3.0 % 09/18/23 05:28 Baso % (Auto) 0.2 % 09/18/23 05:28 Neut # (Auto) 3.91 K/uL (1.40-6.50) 09/18/23 05:28 Lymph # (Auto) 0.91 K/uL (1.20-3.40) L 09/18/23 05:28 Castro # (Auto) 0.35 K/uL (0.11-0.59) 09/18/23 05:28 Eos # (Auto) 0.16 K/uL (0.00-0.50) 09/18/23 05:28 Baso # (Auto) 0.01 K/uL (0.00-0.20) 09/18/23 05:28 Immature Gran # (Auto) 0.03 K/uL (0.01-0.20) 09/18/23 05:28 Ovalocytes 1+ 09/17/23 13:20 PT 11.4 Seconds (9.0-12.0) 09/17/23 13:20 INR 1.0 (0.9-1.1) 09/17/23 13:20 Sodium 134 mmol/L (136-145) L 09/23/23 06:07 Potassium 3.7 mmol/L (3.5-5.1) 09/23/23 06:07 Chloride 99 mmol/L (98-107) 09/23/23 06:07 Carbon Dioxide 29 mmol/L (21-32) 09/23/23 06:07 Anion Gap 6 (3-11) 09/23/23 06:07 BUN 16 mg/dl (6-23) 09/23/23 06:07 Creatinine 0.68 mg/dl (0.6-1.4) 09/23/23 06:07 Est Cr Clr Drug Dosing 89.5 ml/min 09/23/23 06:07 Est GFR ( Amer) 104.5 ml/min 09/23/23 06:07 Est GFR (Non-Af Amer) 90.2 ml/min 09/23/23 06:07 BUN/Creatinine Ratio 23.5 (10-20) H 09/23/23 06:07 Glucose 103 mg/dl (70-99(Fasting)) H 09/23/23 06:07 Calcium 8.0 mg/dl (8.6-10.3) L 09/23/23 06:07 Phosphorus 3.9 mg/dl (2.5-4.9) 09/23/23 06:07 Magnesium 1.8 mg/dl (1.7-2.4) 09/23/23 06:07 Total Bilirubin 0.5 mg/dl (0.2-1.0) 09/17/23 13:20 AST 13 U/L (13-39) 09/17/23 13:20 ALT 7 U/L (7-52) 09/17/23 13:20 Alkaline Phosphatase 75 U/L (34-104) 09/17/23 13:20 Total Protein 7.0 gm/dl (6.0-8.3) 09/17/23 13:20 Albumin 3.1 gm/dl (3.4-5.0) L 09/17/23 13:20 Globulin 3.9 gm/dl (2.5-4.0) 09/17/23 13:20 Albumin/Globulin Ratio 0.8 (0.9-2) L 09/17/23 13:20 Lipase 10 U/L (11-82) L 09/17/23 13:20 Urine Color Red 09/19/23 Unknown Urine Appearance Turbid (Clear) A 09/19/23 Unknown Urine pH 7.0 (4.5-7.5) 09/19/23 Unknown Ur Specific Corrigan 1.017 (1.000-1.030) 09/19/23 Unknown Urine Protein 3+ (Negative) H 09/19/23 Unknown Urine Glucose (UA) Negative (Negative) 09/19/23 Unknown Urine Ketones Negative (Negative) 09/19/23 Unknown Urine Blood 3+ (Negative) H 09/19/23 Unknown Urine Nitrite Negative (Negative) 09/19/23 Unknown Urine Bilirubin Negative (Negative) 09/19/23 Unknown Urine Urobilinogen Negative (Negative) 09/19/23 Unknown Ur Leukocyte Esterase (Negative) 09/19/23 Unknown Urine WBC (Auto) >30 /hpf (0-5) H 09/19/23 Unknown Urine RBC (Auto) >30 /hpf (0-4) H 09/19/23 Unknown U Hyaline Cast (Auto) 0 /lpf (0-5) 09/19/23 Unknown U Epithel Cells (Auto) 0-5 /lpf (0-5) 09/19/23 Unknown Urine Bacteria (Auto) Negative (Negative) 09/19/23 Unknown Urine RBC >30 /hpf (0-4) H 09/19/23 Unknown Urine WBC >30 /hpf (0-5) H 09/19/23 Unknown Ur Epithelial Cells 0-5 /lpf (0-5) 09/19/23 Unknown Urine Bacteria Negative (Negative) 09/19/23 Unknown Nasal Screen MRSA (PCR) Negative (Negative) 09/17/23 23:15 SARS-CoV-2, RNA, NAAT NEGATIVE (NEGATIVE) 09/17/23 19:26 Impressions Abdomen/Pelvis CT 09/17/23 11:56 CT OF THE ABDOMEN AND PELVIS WITH CONTRAST CLINICAL HISTORY: Abdominal pain. Urinary retention. COMPARISON STUDY: None. TECHNIQUE: Following IV administration of 89 mL of Optiray, axial images of the abdomen and pelvis were obtained from the lung bases to the proximal femurs. Images were reviewed in the axial, sagittal, and coronal planes. IV contrast was administered without complication. Automated exposure control was utilized for the study. A dose lowering technique was utilized adhering to the principles of ALARA. CT DOSE: 1087.95 mGy.cm FINDINGS: No pneumatosis, free air or portal venous gas is present. There is a moderate sized hiatal hernia. Liver morphology is normal. An 8 mm hypodense segment 7 hepatic lesion is too small to characterize. There is no biliary or pancreatic ductal dilatation. The gallbladder is slightly distended. There is no pericholecystic infiltration or gallbladder wall thickening. Spleen and adrenal glands are unremarkable. There is moderate bilateral hydroureteronephrosis. A Prakash balloon within the base of the bladder is noted. There is gas within the bladder. Moderate bladder wall thickening is noted with adjacent fluid and stranding. There is a 4.4 cm density within the bladder on axial image 236 of 329. No abdominal or pelvic lymphadenopathy is present. There are no suspicious osseous lesions. Right hip arthroplasty is intact. There is no evidence for a bowel obstruction. A moderate amount of stool within the rectum is present. The caliber and wall thickness of small and large bowel are normal. The appendix is normal. Postoperative within the spine are incidentally noted. IMPRESSION: 1. Moderate bilateral hydroureteronephrosis, related to the bladder. Moderate bladder wall thickening with adjacent fluid and stranding. Prakash balloon and gas within the bladder. In addition, 4.4 cm density within the bladder. This could reflect clot or a bladder tumor. 2. Moderate amount of stool within the rectum. No evidence for a bowel obstruction. No bowel wall thickening. 3. Hiatal hernia. ACT 112: Negative or not required by law. Electronically signed by: Glen Meyers M.D. 09/17/2023 4:50 PM Lumbar Spine MRI 09/21/23 09:27 MRI OF THE LUMBAR SPINE COMBO CLINICAL HISTORY: Left leg weakness. Low back pain. Hematuria. COMPARISON STUDY: Abdominal CT dated 09/17/2023. TECHNIQUE: MRI of the lumbar spine was performed utilizing various T1 and T2- weighted sequences in the axial and sagittal planes. Contrast-enhanced sequences are acquired following the IV administration of 7.5 cc of Gadavist. The examination is significantly compromised by motion artifact. FINDINGS: Lumbar spine: Vertebral body height is maintained throughout the lumbar spine. There is minimal retrolisthesis at L1-L2 and L2-L3. Alignment is otherwise preserved. Lumbar levocurvature is centered at L3. Large anterior and lateral marginal osteophytes are seen throughout. 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 Marrow signal intensity is markedly heterogeneous. Severe chronic endplate changes seen at all lumbar levels. Degenerative endplate edema is noted at L1-L2, L3-L4, and L4-L5. The transverse processes appear intact. No destructive bony lesion is seen. Intervertebral discs: Disc desiccation and severe loss of height is seen at all lumbar levels. There is partial bony fusion at L5-S1. Spinal cord: The visualized spinal cord is normal in morphology and signal intensity. The conus medullaris terminates at the T12-L1 interspace. The nerve roots of the cauda equina are normal in morphology. No abnormal postcontrast enhancement is identified. T12-L1: Unremarkable. L1-L2: A posterior disc osteophyte complex minimally effaces the ventral subarachnoid space. This abuts the transiting nerve roots. There is no significant acquired compromise of the central canal. A left lateral disc bulge contributes to subarticular stenosis and may impinge in the exiting left L1 nerve root. In conjunction with facet arthropathy, there is mild left neural foraminal stenosis. The right neural foramen is patent. L2-L3: A posterior disc osteophyte complex effaces the ventral subarachnoid space. This abuts the transiting nerve roots. There is no significant acquired compromise of the central canal. Lateral disc bulges contribute to bilateral subarticular stenosis, right greater than left. In conjunction with facet arthropathy, there is moderate right neural foraminal stenosis. The left neural foramen is patent. L3-L4: A posterior disc osteophyte complex minimally effaces the ventral subarachnoid space. The central canal is clear. A left lateral disc bulge contributes to subarticular stenosis and may abut the exiting left L3 nerve root. In conjunction with facet arthropathy, there is mild right and moderate left neural foraminal stenosis. L4-L5: There is a small posterior disc osteophyte complex. No significant acquired compromise of the central canal is seen. Lateral disc bulges contribute to bilateral subarticular stenosis. This may abut the exiting bilateral L4 nerve roots. In conjunction with facet arthropathy, there is moderate bilateral neural foraminal stenosis, right greater than left. L5-S1: The central canal is clear. Predominantly, facet arthropathy contributes to moderate to severe left neural foraminal stenosis. The right neural foramen appears patent. Sacrum: The imaged sacrum is normal in morphology and signal intensity. Soft tissues: There is fatty atrophy of the paraspinous musculature. There is nonspecific presacral soft tissue edema. The retroperitoneal structures are grossly unremarkable but incompletely evaluated. Significant bladder wall thickening is suggested on the cell liner sequence. IMPRESSION: 1. Significantly motion compromised examination. 2. Lumbosacral spondylosis and scoliosis as above. There is no significant acqu ired compromise of the central canal. See discussion for detailed level by level analysis. 3. No destructive bony lesion is seen. 4. Advanced degenerative disc disease as above with multilevel endplate change/edema. 5. There is nonspecific presacral soft tissue edema. Correlate clinically. 6. Significant bladder wall thickening is suggested on the cell liner sequence. Dictated: 09/21/2023 3:27 PM Transcribed: 09/21/2023 3:50 PM Wayneanastasia [id number] CLARIBEL_Neil [id number] Electronically signed by: Johnson Rosado M.D. 09/21/2023 4:19 PM Venous Doppler Study 09/22/23 10:15 ULTRASOUND LEFT LOWER EXTREMITY VENOUS CLINICAL HISTORY: Left leg weakness. COMPARISON STUDY: No priors. TECHNIQUE: Real-time, grayscale, and color Doppler sonography of the deep veins of the left lower extremity was performed from the inguinal crease to the calf. Compression and augmentation were utilized. FINDINGS: There is no sonographic evidence of deep venous thrombosis identified in the left lower extremity. The common femoral, superficial femoral, and popliteal veins are patent and normally compressible. The greater saphenous vein and the profunda femoris vein at the junction with the common femoral vein are clear. The visualized calf veins are patent. IMPRESSION: There is no sonographic evidence of deep venous thrombosis identified in the left lower extremity. ACT 112: Negative or not required by law. Electronically signed by: Johnson Rosado M.D. 09/22/2023 2:47 PM Ordered Studies 09/17/23 11:56 CT abd pelvis IV con only Stat 09/18/23 23:12 US venous doppler LE RT Urgent 09/21/23 09:27 MR lumbar spine wo/w con Routine 09/22/23 10:15 US venous doppler LE LT Routine Hospital Course (1) Gross hematuria: Patient is an 82-year-old male past med hx significant for restless leg syndrome, constipation, GERD, iron deficiency anemia, hypertension, COPD, neuropathy, urinary retention, history of dyspnea, vitamin D deficiency, coming from [facility] because of gross hematuria. Gross hematuria H/O Urinary retention Urinary bladder density DD: Malignancy S/[facility]rakash at [facility] which resulted in gross hematuria --CT ABD:Moderate bilateral hydroureteronephrosis, related to the bladder. Moderate bladder wall thickening with adjacent fluid and stranding. Prakash balloon and gas within the bladder. In addition, 4.4 cm density within the bladder. This could reflect clot or a bladder tumor. Moderate amount of stool within the rectum. No evidence for a bowel obstruction. No bowel wall thickening. Hiatal hernia. -- Empirically received IV Rocephin for 5 days Continue Flomax Continue Prakash catheter Appreciate urology input Plan for outpatient voiding trial, cystoscopy Needs follow-up with urology upon discharge Left LE weakness Advanced degenerative disc disease Ambulatory dysfunction H/O Spinal stenosis with remote history of back surgery --Venous Doppler:There is no sonographic evidence of deep venous thrombosis identified in the left lower extremity. --MRI Lumbar Spine:Significantly motion compromised examination. Lumbosacral spondylosis and scoliosis as above. There is no significant acquired compromise of the central canal. See discussion for detailed level by level analysis. No destructive bony lesion is seen. Advanced degenerative disc disease as above with multilevel endplate change/edema. There is nonspecific presacral soft tissue edema. Correlate clinically. Significant bladder wall thickening is suggested on the cell liner sequence. -- Appreciate orthopedic spine input: Patient not interested in surgical intervention. Aggressive PT OT. Ambulate ad german. --Fall precautions Continue PT OT: [facility]commends [facility] at [facility] Acute on chronic iron deficiency anemia Possible acute blood loss anemia On presentation, Hgb 10.3. 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 DVT Px SCDs Re:Hematuria Disposition [facility] Jaciel Total Time Total Time Spent Total Time Spent (In Minutes): 65 minutes Discharge Plan Discharge Items [facility] Reason For Visit: GROSS HEMATURIA Discharge Diagnosis: Gross hematuria Urinary bladder density DD: Tumor/Malignancy Supraventricular tachycardia Advanced degenerative disc disease Ambulatory dysfunction Hypertension Activity: Per Instructions section Exercise/Sports: Gradually increase as tolerated Non-emergency contact: Primary Care Provider and Urologist Call non-emergency contact if: you have any medication questions, your symptoms worsen, your pain is concerning for you and you have a fever Follow-up/Referrals: Jaciel ABREU [Primary Care Provider] - Diet: Heart Healthy Addtl Attending Provider Instructions: Follow-up with your physician at [facility] facility in 1 week Follow-up with your urologist Dr. Martinez for outpatient cystoscopy and voiding trial --- Continue physical therapy at [facility] facility for left lower extremity weakness -- Your blood pressure medication lisinopril is increased to 40 mg daily and you are started on metoprolol succinate 25 mg twice a day as recommended by your airborne electronics analyst. Seek immediate medical attention if your symptoms reoccur or worsen Please take all medications as instructed on discharge list below. Please call if you have any questions or problems. You can reach a [facility] hospitalist on duty at [facility] 24 hours a day by calling [phone] Pending Studies at Discharge: No Stand-Alone Forms: My [facility] Skilled Items Patient informed of condition?: Yes Discharge Level of Care: Other Communicable Disease: No Discharge Prognosis: Stable Lines: None Urinary Catheter: Yes Medications and DC Order Prescriptions: New magnesium oxide 400 mg (241.3 mg magnesium) Tablet 400 mg PO DAILY Qty: 30 0RF metoprolol succinate 25 mg Tablet Extended Release 24 Hr 25 mg PO BID Qty: 0 0RF Continued furosemide [Lasix] 40 mg Tablet 40 mg PO DAILY ropinirole 1 mg Tablet 1 mg PO HS Rx Instructions: administer 1-3 hours before bedtime tamsulosin 0.4 mg Capsule 0.4 mg PO HS albuterol sulfate 90 mcg/actuation Hfa Aerosol Inhaler 2 puff INHALATION QID PRN (Reason: Shortness Of Breath) cholecalciferol (vitamin D3) [Vitamin D3] 25 mcg (1,000 unit) Capsule 50 mcg PO DAILY Nephron FA 66 mg iron- 1,000 mcg Tablet 1 tab PO DAILY Changed lisinopril 20 mg Tablet 40 mg PO DAILY Qty: 60 0RF Discharge Orders: Discharge Order (Routine); Ordered 09/23/23 Ordered By: Bishnu Parker Admission Data Admit Date/Time: 09/17/23 19:54 Attending Provider: Bishnu Parker Admit Provider: Gentry Shah Primary Care Provider: Jaciel ABREU Other Providers: Gentry Shah ; Jeremi Tavarez ; Travis Ortiz ; Mario Martinez ; Kimber Stewart ; Paulino Tatum ; Amberly Buenrostro ; Gena Johnson ; Gerry Garsia ; Paradise Briscoe ; Amando Alvarenga ; Brice Mcnamara ; Tristan Ashley ; Latonia Coles I. ; Amando Malik ; Hayes Stephen
== END 2023-09-23 18:43 | DRG 699 ==
LOC: EDBD → ED 11:19 → SUATTDRO 19:54 → 2N 19:54